=== PATIENT | female | born 1970 | race Caucasian/White ===

== ENCOUNTER 2018-03-09 18:52 | Emergency (ER) | payer BC, SELFPAY ==
[2018-03-09 19:05] VITALS: BP 163/91; PULSE 81; RESP 16; TEMP 37; O2SAT 96
[2018-03-09] MEDS: Normal Saline 1,000 ML 1000 ML IV (19:57)
[2018-03-09] MEDS: Ondansetron 4 MG/2 ML VIAL IVP (19:57)
[2018-03-09 20:16] LABS: ALT 23 U/L (12-78); AST 19 U/L (15-37); Albumin 3.2 g/dL (3.4-5.0); Alkaline Phosphatase 74 U/L (46-116); BUN 13 mg/dL (7-18); Bilirubin, Total 0.4 mg/dL (0.2-1.0); CREATININE 0.66 mg/dL (0.55-1.02); Calcium 8.5 mg/dL (8.5-10.1); Chloride 106 mmol/L (98-107); Glucose 135 mg/dL (70-100); Lipase 124 U/L (73-393); Potassium 3.6 mmol/L (3.5-5.1); Sodium 141 mmol/L (136-145); Total Protein 7.4 g/dL (6.4-8.2)
[2018-03-09 20:17] LABS: Abs Immature Grans 0.06 k/cumm (0.0-0.09); Absolute Basophil Count 0.02 k/cumm (0.0-0.2); Absolute Eosinophil Count 0.33 k/cumm (0.0-0.7); Absolute Lymphocyte Count 2.98 k/cumm (1.2-3.4); Absolute Monocyte Count 1.06 k/cumm (0.11-0.7); Basophils % 0.2; Eosinophils % 2.8; HCT 43.3 % (36.0-46.0); HGB 14.3 g/dL (12.0-15.5); Immature Grans % 0.5; Lymphocytes % 25.1; Mean Corpuscular Hemoglobin 30.8 pg (27.0-33.0); Mean Corpuscular Volume 93.3 fL (80-95); Mean Platelet Volume 11.2 fL (8.0-11.0); Monocytes % 8.9; Neutrophils % 62.5; Platelet Count 235 x1000/uL (130-400); RBC 4.64 m/cumm (4.00-5.20); RBC Distribution Width 13.8 % (11.7-14.6); White Blood Cell Count 11.89 k/cumm (4.4-10.8)
[2018-03-09 20:22] LABS: Troponin I < 0.02 ng/mL (0.00-0.06)
[2018-03-09 20:23] LABS: Absolute Neutrophil Count 7.43 k/cumm (1.2-6.7)
[2018-03-09] MEDS: Omnipaque 350 MG/ML 50 ML BTL PO (21:19)
[2018-03-09] MEDS: Breeza Beverage 473 ML BTL PO ×2 (21:19→21:20)
--- NOTE | 2018-03-09 21:24 | DI.RAD_ITS ---
SYMPTOMS/DIAGNOSIS: ABDOMINAL PAIN, VOMITING, NAUSEA PA CHEST AND KUB AND UPRIGHT ABDOMEN: CHEST: The lungs are well expanded and free of infiltrate. There is no pneumothorax or pleural effusion. The cardiovascular structures are intact. SUMMARY: No evidence of acute cardiopulmonary disease. ABDOMEN: Supine and upright images of the abdomen reveal no evidence of free air. There is some contrast material in the stomach and bowel. There is no evidence of obstruction. There is no evidence of gross organomegaly or localized intraabdominal or pelvic mass. Multiple left pelvic vascular clips are identified. SUMMARY: No evidence of an acute abdomen.
--- NOTE | 2018-03-09 22:09 | DI.VRAD_ITS ---
EXAM: XR Abdomen 2 Views With XR Chest CLINICAL HISTORY: 48 years old, female; Pain and signs and symptoms; Nausea and vomiting; Abdominal pain; Localized; Right upper quadrant (ruq); Patient HX: Abdominal pain, vomiting, nausea TECHNIQUE: Frontal view of the chest, frontal view of the abdomen/pelvis and upright or decubitus view of the abdomen. COMPARISON: No relevant prior studies available. FINDINGS: Lungs: There is no evidence of focal pulmonary consolidation. The pulmonary vasculature is normal. Pleural space: There is no evidence of pneumothorax. There are no pleural effusions present. Heart: The cardiac silhouette is within normal limits. Mediastinum: The mediastinum is normal. Intraperitoneal space: There is no free intraperitoneal air. Gastrointestinal tract: There is nonspecific bowel pattern. Contrast is seen throughout the wall and large bowel. No evidence of bowel obstruction. Organs: The organs are unremarkable. The organs visualized appear within normal limits. Bones/joints: There is a mild scoliosis of the thoracolumbar spine convex to the left. Surgical changes seen adjacent to the lower lumbar spine, right lower quadrant. The spine, sacroiliac joints, and hip joints show no evidence of fracture or other acute processes. The thoracic spine, sternum, ribs, and pectoral girdles show no evidence of fracture or other acute processes. There are no thoracic soft tissue masses or calcifications. Soft tissues: Surgical clips are seen within the left hemipelvis. There are no abdominal soft tissue masses or calcifications. IMPRESSION: No active cardiopulmonary disease . No acute abdominal process identfied. Dictated and Authenticated by: Emanuel Pete MD. Ordering:ANGEL VEARS MD
--- NOTE | 2018-03-09 22:12 | ED.GENADUL_ITS ---
Discharge Plan Disposition Patient Disposition: HOME Condition: Good Discharge Details Chief Complaint: Nausea/Vomit/Diar Clinical Impression: Nausea & vomiting, Biliary colic Primary Care Provider: Ling Roque ED Provider: Kirt Maurice Home Meds and New Rx's Prescriptions: New ondansetron HCl [Zofran] 4 mg tablet 4 mg PO TID PRN (Reason: nausea and vomiting) 5 Days RF: 0 No Action multivitamin 1 EACH capsule 1 ea PO QAM RF: 0 Discharge Instructions Instructions: Acute Nausea and Vomiting (ED) Additional Instructions: Please contact diagnostic imaging tomorrow morning at 7 AM for your ultrasound. Please avoid any spicy foods, fatty foods, or greasy foods. If you notice any worsening of your symptoms, or any new symptoms such as vomiting, diarrhea, fever, chills, shortness of breath, chest pain, numbness, weakness, or fainting , please return immediately to the emergency department for reevaluation. Please follow up with your primary care provider as soon as possible for reassessment and reevaluation. As always, it was a pleasure participating in your medical care today. Referrals: Ling Roque, FORCE ADJUSTMENT SUPERVISOR [Primary Care Provider] - Medical Decision Making This is a 48-year-old female with a past medical history of morbid obesity, ovarian and uterine cancer with a surgical hysterectomy who presents with abdominal pain that started at 10 PM yesterday after eating a greasy meal. Symptoms seem to come and go and are associated with greasy and spicy foods. She has had notable bloating and nausea, but very little vomiting. She has also had some weightish stool over the past few days. Physical exam demonstrates mild tenderness throughout, no acute guarding or rebound though. No peritoneal signs. We did perform a laboratory workup, and plan was to get a CT scan of the abdomen with contrast for further intra-abdominal evaluation. Differential included gallbladder pathology versus obstruction versus other acute intra-abdominal pathology. The patient's benign-appearing abdomen no differential for a surgical pathology was low. Patient's laboratory workup demonstrated minimal leukocytosis at 11.89, no bandemia, normal electrolytes, normal renal function. Troponin and EKG were also both benign. Lipase is normal. Urinalysis shows no signs of infection. Patient was given Zofran and IV fluids and felt much better after this. After the patient finished drinking her contrast patient went for CT however secondary to her weight of 423 pounds the patient was not allowed to get on the CT scanner table secondary to weatherization field technician out of concern for the machines maximum weight rating. We did get an x-ray of the patient's abdomen and this showed no acute intra- abdominal process. We did attempt to contact the ultrasonographers to come in for ultrasound however we are unable to get any response or person for ultrasound evaluation. Had a long and lengthy discussion with the patient regarding potential transfer for CT scan that would tolerate the patient's current habitus, versus discharge with ultrasound tomorrow morning and close follow-up. After a long discussion, review of the patient's labs and current imaging, and through shared decision making process with the family it is been decided to hold off on transfer for CT imaging, and instead for close follow-up tomorrow with ultrasonography for acute gallbladder pathology. Reevaluation the patient's abdominal tenderness is significantly improved. She has had complete resolution of her nausea, and states that she feels much much better at this time. Patient will be discharged home. I have a long discussion with her regarding red flags for which to immediately return, important foods for which to avoid, and the importance of close follow-up. Diagnosis at this time includes gastritis, potential biliary colic. I have extensively reviewed the treatment plan and discharge instructions with the patient and their family. I have addressed all patient concerns at this time. The patient and family was made aware of what symptoms to monitor for that would warrant a return to the emergency department. Discussed the plan with the patient and family, they demonstrate verbal understanding and agreement with our assessment and plan at this time. HPI General Date/Time Provider Initiated Documentation: 03/09/18 19:44 . HPI Narrative: This is a 48-year-old female with a past medical history of ovarian and uterine cancer with a surgical hysterectomy secondary to this. She has not received chemotherapy. She presents today for evaluation of abdominal pain, bloating, and nausea. Patient states that at 10 PM yesterday she had a very big greasy pizza, and since then has had the symptoms of bloating nausea and gas. Symptoms appear to be localized to her right upper quadrant. They come and go in severity. They seem to be worsened with food and greasy foods in particular. She has had no vomiting. Because of her general denies discomfort she has not eaten anything since 10 PM yesterday but has been able to drink well without problems. She has noticed that her stool has been whitish and yellow in color which is been a change. She denies any hematemesis, hematochezia, melena. She denies any chest pain, shortness of breath. Denies PE risk factors such as recent long car rides, immobilization, recent surgery, prior history of DVT or PE, family history of PE or DVT, morbid obesity, exogenous estrogen and smoking, hemoptysis, history of cancer. She denies any history of gallbladder problems. Patient has no other complaints at this time. She denies any previous surgery, she denies any pertinent family history. Related Data Home Medications Medication Instructions Recorded Confirmed multivitamin 1 ea PO QAM 07/29/12 03/09/18 ondansetron HCl [Zofran] 4 mg PO TID PRN 5 Days tab 03/09/18 Previous Rx's Medication Instructions Recorded ondansetron HCl [Zofran] 4 mg PO TID PRN 5 Days tab 03/09/18 Allergies Allergy/AdvReac Type Severity Reaction Status Date / Time Penicillins Allergy Intermediate Anaphylaxsi Unverified 03/09/18 19:40 s General Stated Complaint: Nausea/Vomit/Diar ANGIE: 3 Review of Systems Review of Systems All systems reviewed & are unremarkable except as noted in HPI and below PFSH Family History Mother Diabetes Essential hypertension ASCVD (arteriosclerotic cardiovascular disease) Heart disease Obesity Father Diabetes Essential hypertension Heart disease Obesity Grandfather Personal history of malignant neoplasm Grandfather Essential hypertension Personal history of malignant neoplasm Heart disease Grandmother Personal history of malignant neoplasm Grandmother No problems noted. Daughter Asthma Daughter Asthma Social History Smoking/Tobacco Use Status: Never Surgical History Abdominal hysterectomy (~2007) Bilateral salpingectomy with oophorectomy (~2007) Exam Narrative Exam Narrative: 1.Const: Well-nourished, Well-developed, appearing stated age, super morbidly obese 2.Eyes: PERRL, no conjunctival injection, and symmetrical lids. 3.ENT: Atraumatic external nose and ears. Moist MM. Neck: Symmetric, trachea midline, No thyromegaly. 4.CVS: +S1/S2, No murmurs or gallops. Peripheral pulses 2+ and equal in all extremities. Brisk capillary refill in all extremities. 5.RESP: Unlabored respiratory effort. Clear to auscultation bilaterally. No wheezes rales or rhonchi 6.GI: Soft,Nondistended, No hepatosplenomegaly. No guarding or rebound. No focal abdominal tenderness. No right lower quadrant tenderness. Questionable right upper quadrant tenderness. Negative Machado sign. Notable amounts of pannus. 7.MSK: Normocephalic/Atraumatic, Extremities w/o deformity or ttp No cyanosis or clubbing, Normal movement of all extremities 8.Skin: Warm, Dry. No rashes or lesions. No calf tenderness. 9.Neuro: named account executive II-XII grossly intact. Sensation grossly intact, no focal neurologic deficits. 10.Psych: (AAO) x3. Appropriate mood and affect Course Vital Signs Temperature 37.0 C 03/09/18 19:05 Pulse 81 03/09/18 19:05 Respiratory Rate 16 03/09/18 19:05 Blood Pressure 163/91 H 03/09/18 19:05 Pulse Oximetry 96 03/09/18 19:05 Temperature 37.0 C 03/09/18 19:05 Temperature Source Temporal Artery Scan 03/09/18 19:05 Pulse 81 03/09/18 19:05 Respiratory Rate 16 03/09/18 19:05 Blood Pressure 163/91 H 03/09/18 19:05 Blood Pressure Position Sitting 03/09/18 19:05 Pulse Oximetry 96 03/09/18 19:05 Oxygen Delivery Method Room Air 03/09/18 19:05 Oxygen Flow Rate 0 03/09/18 19:05 Pain Level 7 03/09/18 19:05 Lab/Test Results Lab/Test Results: Laboratory Tests Range/Units 03/09/18 03/09/18 19:40 19:40 WBC (4.4-10.8) k/cumm 11.89 H RBC (4.00-5.20) m/cumm 4.64 Hgb (12.0-15.5) g/dL 14.3 Hct (36.0-46.0) % 43.3 MCV (80-95) fL 93.3 MCH (27.0-33.0) pg 30.8 MCHC (32.0-36.0) g/dL 33.0 RDW (11.7-14.6) % 13.8 Plt Count (130-400) x1000/uL 235 MPV (8.0-11.0) fL 11.2 H Immature Gran % 0.5 Neutrophils % 62.5 Lymphocytes % 25.1 Monocytes % 8.9 Eosinophils % 2.8 Basophils % 0.2 Absolute Neutrophils (1.2-6.7) k/cumm 7.43 H Absolute Lymphocytes (1.2-3.4) k/cumm 2.98 Absolute Monocytes (0.11-0.7) k/cumm 1.06 H Absolute Eosinophils (0.0-0.7) k/cumm 0.33 Absolute Basophils (0.0-0.2) k/cumm 0.02 Sodium (136-145) mmol/L 141 Potassium (3.5-5.1) mmol/L 3.6 Chloride (98-107) mmol/L 106 Carbon Dioxide (21.0-32.0) mmol/L 23.0 Anion Gap (3-11) mmol/L 12.0 H BUN (7-18) mg/dL 13 Creatinine (0.55-1.02) mg/dL 0.66 Estimated GFR/1.73 m2 (mL/min/1.73m2) >= 60.00 Glucose (70-100) mg/dL 135 H Calcium (8.5-10.1) mg/dL 8.5 Total Bilirubin (0.2-1.0) mg/dL 0.4 AST (15-37) U/L 19 ALT (12-78) U/L 23 Alkaline Phosphatase (46-116) U/L 74 Troponin I (0.00-0.06) ng/mL < 0.02 Total Protein (6.4-8.2) g/dL 7.4 Albumin (3.4-5.0) g/dL 3.2 L Lipase (73-393) U/L 124
[2018-03-09 22:15] LABS: Bilirubin Negative (Negative); Blood Negative (Negative); Clarity Clear; Glucose Negative (Negative); Ketones Negative (Negative); Leukocyte Esterase Negative (Negative); Nitrite Negative (Negative); Specific Gravity 1.025 (1.005-1.025); Urobilinogen 0.2 EU/dL (Up TO 0.2); pH 5.5 (5-8)
[2018-03-09 22:28] VITALS: BP 115/57; PULSE 80; RESP 16; TEMP 37; O2SAT 95
[2018-03-09] MEDS: Ondansetron O.D.T. 4 MG TABEF PO (22:55)
[2018-03-09 23:02] VITALS: BP 115/57; PULSE 80; RESP 16; TEMP 37; O2SAT 95
== END 2018-03-09 23:08 | disposition home or self-care (01) ==
PROVIDERS: Emergency Provider Student in an Organized Health Care Education/Training Program
DX: R11.2 Nausea with vomiting, unspecified (principal); R14.0 Abdominal distension (gaseous); R10.11 Right upper quadrant pain
CPT/HCPCS: 36415; 80053; 83690; 93005; 96361; 96374; 99285; 74022; 81003; 84484; 85025; 93010; J2405; Q9967

== ENCOUNTER 2018-03-10 12:02 | Emergency (ER) | payer BC, SELFPAY ==
[2018-03-10 12:07] VITALS: BP 148/88; PULSE 77; RESP 16; TEMP 36.5; O2SAT 98
--- NOTE | 2018-03-10 12:26 | W.ED.GENAD ---
Discharge Plan Disposition Patient Disposition: HOME Condition: Improving Discharge Details Chief Complaint: Recheck Clinical Impression: Abdominal pain Primary Care Provider: Ling Roque ED Provider: Chico Al Home Meds and New Rx's Prescriptions: Continue multivitamin 1 EACH capsule 1 ea PO QAM RF: 0 ondansetron HCl [Zofran] 4 mg tablet 4 mg PO TID PRN (Reason: nausea and vomiting) 5 Days RF: 0 Discharge Instructions Instructions: Abdominal Pain (ED) Additional Instructions: Feel free to return to the emergency department for any new or significant worsening of symptoms such as persistent vomiting, abdominal pain, fever chills or any further concerns. Otherwise call general surgeon's office for arrangement of follow-up appointment within the next couple weeks. You may continue to use the prescribed medication for nausea as needed Referrals: Anthony Hernandez DO [ [facility] STAFF PHYSICIAN] - (Call the office within the next couple days for arrangement of follow-up for reassessment) Discharge Data Discharge Date/Time-TO BE ENTERED AT DEPARTURE: 03/10/18 12:36 Medical Decision Making Patient presenting to the emergency department for follow-up on ultrasound results after yesterday's visit. Patient stated some epigastric and right upper quadrant pain which is now resolved. Patient denies any symptoms at this time. Ultrasound did show questionable fatty liver with some increase in hepatic size but no evidence of acute cholecystitis biliary dilatation or gallstones. Physical exam is unremarkable today and patient is in no signs of distress or discomfort and denies any pain. Given negative ultrasound results and improvement of symptoms I feel the patient is able to be safely discharged with follow-up to general surgery for question of biliary colic and need of possible further testing but I do not feel that this needs to be done on an emergent basis. After discussion of diagnosis and plan of care patient has no further needs, questions, or concerns and states clear understanding to return to the emergency department for any worsening symptoms. HPI General Mode of arrival: ambulatory. Date/Time Provider Initiated Documentation: 03/10/18 12:25. Limitations to Documentation: no limitations. Information obtained by: patient, RN notes reviewed and old records reviewed. History of Present Illness 48 year old F presents to the emergency department with the chief complaint of Ultrasound results/abdominal pain, Quality is described as other (Denies any current pain or discomfort), Patient started experiencing this day(s) (1) and it has been now resolved. No exacerbating factors reported . Patient notes no other symptoms.. Related Data Home Medications Medication Instructions Recorded Confirmed multivitamin 1 ea PO QAM 07/29/12 03/10/18 ondansetron HCl [Zofran] 4 mg PO TID PRN 5 Days tab 03/09/18 03/10/18 Previous Rx's Medication Instructions Recorded ondansetron HCl [Zofran] 4 mg PO TID PRN 5 Days tab 03/09/18 Allergies Allergy/AdvReac Type Severity Reaction Status Date / Time Penicillins Allergy Intermediate Anaphylaxsi Unverified 03/10/18 12:09 s General Stated Complaint: Recheck ANGIE: 5 Review of Systems Constitutional Denies body ache(s), Denies chills and Denies fever(s) Cardiovascular Denies chest pain and Denies dyspnea Respiratory Denies dyspnea Gastrointestinal Reports as per HPI, Reports abdominal pain, Reports nausea and Denies vomiting Genitourinary Denies dysuria and Denies flank pain Integumentary/Breasts Denies rash PFSH Family History Mother Diabetes Essential hypertension ASCVD (arteriosclerotic cardiovascular disease) Heart disease Obesity Father Diabetes Essential hypertension Heart disease Obesity Grandfather Personal history of malignant neoplasm Grandfather Essential hypertension Personal history of malignant neoplasm Heart disease Grandmother Personal history of malignant neoplasm Grandmother No problems noted. Daughter Asthma Daughter Asthma Social History Smoking/Tobacco Use Status: Never Surgical History Abdominal hysterectomy (~2007) Bilateral salpingectomy with oophorectomy (~2007) Exam Const General: cooperative, no acute distress and not ill appearing Orientation: alert, awake and oriented x3 HENMT Mouth: moist mucous membranes Resp Effort & Inspection: normal respiratory effort, able to speak in complete sentences and no respiratory distress Auscultation: clear to auscultation bilaterally Cardio Rate: regular rate Rhythm: regular rhythm Heart Sounds: S1 normal and S2 normal GI Inspection: large pannus and obesity Palpation: soft and nontender Auscultation: normal bowel sounds Skin General skin exam: no rashes or lesions noted Neuro General: alert, awake, oriented x3, moves all extremities and no focal motor deficits Sensory Exam: no sensory deficits noted Course Vital Signs Temperature 36.5 C 03/10/18 12:07 Pulse 77 03/10/18 12:07 Respiratory Rate 16 03/10/18 12:07 Blood Pressure 148/88 H 03/10/18 12:07 Pulse Oximetry 98 03/10/18 12:07 Temperature 36.5 C 03/10/18 12:07 Temperature Source Temporal Artery Scan 03/10/18 12:07 Pulse 77 03/10/18 12:07 Respiratory Rate 16 03/10/18 12:07 Respiratory Effort Non-Labored 03/10/18 12:10 Blood Pressure 148/88 H 03/10/18 12:07 Blood Pressure Position Sitting 03/10/18 12:07 Pulse Oximetry 98 03/10/18 12:07 Oxygen Delivery Method Room Air 03/10/18 12:07 Oxygen Flow Rate 0 03/10/18 12:07 Pain Level 0 03/10/18 12:07
--- NOTE | 2018-03-10 12:29 | ED.GENADUL_ITS ---
Discharge Plan Disposition Patient Disposition: HOME Condition: Improving Discharge Details Chief Complaint: Recheck Clinical Impression: Abdominal pain Primary Care Provider: Ling Roque ED Provider: Chico Al Home Meds and New Rx's Prescriptions: Continue multivitamin 1 EACH capsule 1 ea PO QAM RF: 0 ondansetron HCl [Zofran] 4 mg tablet 4 mg PO TID PRN (Reason: nausea and vomiting) 5 Days RF: 0 Discharge Instructions Instructions: Abdominal Pain (ED) Additional Instructions: Feel free to return to the emergency department for any new or significant worsening of symptoms such as persistent vomiting, abdominal pain, fever chills or any further concerns. Otherwise call general surgeon's office for arrangement of follow-up appointment within the next couple weeks. You may continue to use the prescribed medication for nausea as needed Referrals: Anthony Hernandez DO [ [facility] STAFF PHYSICIAN] - (Call the office within the next couple days for arrangement of follow-up for reassessment) Discharge Data Discharge Date/Time-TO BE ENTERED AT DEPARTURE: 03/10/18 12:36 Medical Decision Making Patient presenting to the emergency department for follow-up on ultrasound results after yesterday's visit. Patient stated some epigastric and right upper quadrant pain which is now resolved. Patient denies any symptoms at this time. Ultrasound did show questionable fatty liver with some increase in hepatic size but no evidence of acute cholecystitis biliary dilatation or gallstones. Physical exam is unremarkable today and patient is in no signs of distress or discomfort and denies any pain. Given negative ultrasound results and improvement of symptoms I feel the patient is able to be safely discharged with follow-up to general surgery for question of biliary colic and need of possible further testing but I do not feel that this needs to be done on an emergent basis. After discussion of diagnosis and plan of care patient has no further needs, questions, or concerns and states clear understanding to return to the emergency department for any worsening symptoms. HPI General Mode of arrival: ambulatory . Date/Time Provider Initiated Documentation: 03/10/18 12:25 . Limitations to Documentation: no limitations . Information obtained by: patient, RN notes reviewed and old records reviewed . History of Present Illness 48 year old F presents to the emergency department with the chief complaint of Ultrasound results/abdominal pain, Quality is described as other (Denies any current pain or discomfort), Patient started experiencing this day(s) (1) and it has been now resolved. No exacerbating factors reported . Patient notes no other symptoms.. Related Data Home Medications Medication Instructions Recorded Confirmed multivitamin 1 ea PO QAM 07/29/12 03/10/18 ondansetron HCl [Zofran] 4 mg PO TID PRN 5 Days tab 03/09/18 03/10/18 Previous Rx's Medication Instructions Recorded ondansetron HCl [Zofran] 4 mg PO TID PRN 5 Days tab 03/09/18 Allergies Allergy/AdvReac Type Severity Reaction Status Date / Time Penicillins Allergy Intermediate Anaphylaxsi Unverified 03/10/18 12:09 s General Stated Complaint: Recheck ANGIE: 5 Review of Systems Constitutional Denies body ache(s), Denies chills and Denies fever(s) Cardiovascular Denies chest pain and Denies dyspnea Respiratory Denies dyspnea Gastrointestinal Reports as per HPI, Reports abdominal pain, Reports nausea and Denies vomiting Genitourinary Denies dysuria and Denies flank pain Integumentary/Breasts Denies rash PFSH Family History Mother Diabetes Essential hypertension ASCVD (arteriosclerotic cardiovascular disease) Heart disease Obesity Father Diabetes Essential hypertension Heart disease Obesity Grandfather Personal history of malignant neoplasm Grandfather Essential hypertension Personal history of malignant neoplasm Heart disease Grandmother Personal history of malignant neoplasm Grandmother No problems noted. Daughter Asthma Daughter Asthma Social History Smoking/Tobacco Use Status: Never Surgical History Abdominal hysterectomy (~2007) Bilateral salpingectomy with oophorectomy (~2007) Exam Const General: cooperative, no acute distress and not ill appearing Orientation: alert, awake and oriented x3 HENMT Mouth: moist mucous membranes Resp Effort & Inspection: normal respiratory effort, able to speak in complete sentences and no respiratory distress Auscultation: clear to auscultation bilaterally Cardio Rate: regular rate Rhythm: regular rhythm Heart Sounds: S1 normal and S2 normal GI Inspection: large pannus and obesity Palpation: soft and nontender Auscultation: normal bowel sounds Skin General skin exam: no rashes or lesions noted Neuro General: alert, awake, oriented x3, moves all extremities and no focal motor deficits Sensory Exam: no sensory deficits noted Course Vital Signs Temperature 36.5 C 03/10/18 12:07 Pulse 77 03/10/18 12:07 Respiratory Rate 16 03/10/18 12:07 Blood Pressure 148/88 H 03/10/18 12:07 Pulse Oximetry 98 03/10/18 12:07 Temperature 36.5 C 03/10/18 12:07 Temperature Source Temporal Artery Scan 03/10/18 12:07 Pulse 77 03/10/18 12:07 Respiratory Rate 16 03/10/18 12:07 Respiratory Effort Non-Labored 03/10/18 12:10 Blood Pressure 148/88 H 03/10/18 12:07 Blood Pressure Position Sitting 03/10/18 12:07 Pulse Oximetry 98 03/10/18 12:07 Oxygen Delivery Method Room Air 03/10/18 12:07 Oxygen Flow Rate 0 03/10/18 12:07 Pain Level 0 03/10/18 12:07
--- NOTE | 2018-03-11 09:27 | PDOC.ERCMPRO ---
Care Management Progress Note 03/11/18-Pt seen on 03/10/18 for abdominal pain . Biliary colic? by Dr. Endy Kay. Referral 1-2 week f/u with surgical faxed.
== END 2018-03-10 12:36 | disposition home or self-care (01) ==
PROVIDERS: Emergency Provider Nurse Practitioner Family
DX: R10.11 Right upper quadrant pain (principal); Z71.2 Person consulting for explanation of examination or test findings

== ENCOUNTER 2018-03-10 13:52 | Outpatient (CLI) | payer BC, SELFPAY ==
--- NOTE | 2018-03-10 11:59 | DI.US_ITS ---
SYMPTOM/DIAGNOSIS: NAUSEA, VOMITING, RUQ DISCOMFORT ABDOMEN ULTRASOUND: The aorta and vena cava are normal. The liver is enlarged and echogenic consistent with fatty infiltration. The gallbladder is normal. There are no gallstones. There is no evidence of ductal dilatation. The pancreas is intact. The spleen is normal. The kidneys are unremarkable. There is no evidence of abdominal free fluid. SUMMARY: A fatty enlarged liver is demonstrated. No acute abnormality is defined.
== END 2018-03-10 14:12 ==
PROVIDERS: Visit Provider Student in an Organized Health Care Education/Training Program
DX: R11.2 Nausea with vomiting, unspecified (principal); R10.11 Right upper quadrant pain; R16.0 Hepatomegaly, not elsewhere classified
CPT/HCPCS: 76700

== ENCOUNTER 2018-04-10 10:03 | Outpatient (CLI) | payer BC, SELFPAY | END 2018-04-10 10:23 | PROVIDERS: Visit Provider Surgery | DX: K82.8 Other specified diseases of gallbladder (principal); Z01.818 Encounter for other preprocedural examination ==

== ENCOUNTER 2019-06-29 13:09 | Outpatient (CLI) | payer BC, SELFPAY ==
--- NOTE | 2019-06-29 12:09 | DI.US_ITS ---
EXAM: US LOWER EXTREMITY VENOUS LT CLINICAL HISTORY: left lower leg/calf/knee pain for 2 days, M79.662. TECHNIQUE: Left lower extremity venous ultrasound performed using grayscale, color-flow, and spectra l Doppler analysis. COMPARISON: US ABDOMEN from 03/10/2018 FINDINGS: The left common femoral, femoral and popliteal veins demonstrate normal compressibility, augmentation , and color Doppler. The posterior tibial veins are patent. The saphenofemoral junction is unremarkab le. There is edema seen in the lower extremity. IMPRESSION: No DVT.
== END 2019-06-29 13:29 ==
PROVIDERS: Visit Provider Family Medicine
DX: M79.662 Pain in left lower leg (principal); M25.562 Pain in left knee; R60.0 Localized edema
CPT/HCPCS: 93971

== ENCOUNTER 2020-04-18 08:41 | Outpatient (CLI) | payer BC, SELFPAY ==
[2020-04-20 22:55] LABS: Patient Race White; SARS-CoV-2 RNA Undetected (Undetected); SARS-CoV-2 Specimen Source Nasal
== END 2020-04-18 09:01 ==
DX: J02.9 Acute pharyngitis, unspecified (principal)
CPT/HCPCS: U0003

== ENCOUNTER → 2020-08-09 01:09 | Outpatient (CLI) | payer BC, SELFPAY ==
--- NOTE | 2020-08-09 08:15 | DI.RAD_ITS ---
EXAM: XR HEEL LT OS CALCIS CLINICAL HISTORY: contusion heel,S90.32XA. TECHNIQUE: 2D digital imaging was performed. COMPARISON: No exams were available for comparison FINDINGS: Two views the left calcaneus including a lateral view and a Quang axial view reveal no evidence of fr acture. A large inferior calcaneal spur is noted as is some calcification in the adjacent plantar fa scia. Also noted is calcification at the insertion of the Achilles on the posterior calcaneus. Os t rigonum versus prominent posterior process of the talus is noted. There is a dorsal talar excrescenc e distally in the talus seen on lateral view. There is no obvious osseous tarsal coalition. Also ev ident on the lateral view is a calcification measuring 9 x 6 millimeters dorsal to the distal navicul ar bone which is probably an accessory ossicle. Bone density is normal. No radiographic evidence of osteomyelitis. No radiopaque foreign body. No obvious degenerative changes in the ankle and subtalar joints on these views. Also unremarkable a ppearance of the calcaneocuboid joint. IMPRESSION: DATA REPOSITORY: RADIATION DOSE DELIVERED:
== END ==
PROVIDERS: Visit Provider Nurse Practitioner
DX: S90.32XA Contusion of left foot, initial encounter (principal)
CPT/HCPCS: 73650

== ENCOUNTER 2020-08-16 08:48 | Outpatient (CLI) | payer BC, SELFPAY ==
[2020-08-17 14:23] LABS: COVID-19 RT-PCR UVMMC Result Negative (Negative)
== END 2020-08-16 08:49 | disposition home or self-care (01) ==
DX: Z20.822 Contact with and (suspected) exposure to COVID-19 (principal)
CPT/HCPCS: U0003

== ENCOUNTER 2022-02-25 07:34 | Emergency (ER) | payer BC, SELFPAY ==
[2022-02-25 07:38] VITALS: BP 174/92; PULSE 91; RESP 18; TEMP 36.6; O2SAT 96
--- OUTSIDE RECORDS SUMMARY | 2022-02-25 07:42 | XMS_ITS | Encounter Summary ---
:1970 Author Organization [facility] [place] [address] Care Team Providers Name Role Phone Ling Roque APRN Primary Care Provider Reason for Referral Diagnostic Test (Routine) - Closed Specialty Diagnoses / Procedures Referred By Contact Refer red To Contact Radiology Diagnoses Right upper quadrant abdominal pain Anthony Hernandez, DO [facility] Rad Nuclear Med Procedures NM Functional Biliary Scan [id number] [place] [address] Phone: Fax: Referral ID Status Reason Start Date Expiration Date Visits V isits Requested Authorized [id number] Closed Specialty 03/17/2018 03/17/2019 2 2 Service Requested Reason for Visit Diagnostic Test (Routine) - Closed Specialty Diagnoses / Procedures Referred By Contact Refer red To Contact Radiology Diagnoses Right upper quadrant abdominal pain Anthony Hernandez DO [facility] Rad Nuclear Med Procedures NM Functional Biliary Scan [id number] [place] [address] Phone: Fax: Referral ID Status Reason Start Date Expiration Date Visits V isits Requested Authorized [id number] Closed Specialty 03/17/2018 03/17/2019 2 2 Service Requested Encounter Details Date Type Department Care Team Description 03/19/2018 Hospital Encounter Nuclear Medicine at Anthony Hernandez , Right upper [facility] abdominal [facility] [address] [facility] [id number] [phone] Social History Tobacco Use Types Packs/Day Years Used Date Never Smoker Smokeless Tobacco: Never Used Alcohol Use Standard Drinks/Week Comments No 0 (1 standard drink = 0.6 oz pure alcoho l) Sex Assigned at Date Recorded Not on file documented as of this encounter Medications at Time of Discharge Medication Sig Dispensed Refills Start Date End Date aspirin 81 mg EC tablet Take 81 mg by mouth 0 11/13/2018 daily. documented as of this encounter Plan of Treatment Not on filedocumented as of this encounter Procedures Procedure Name Priority Date/Time Associated Comments Diagnosis NM FUNCTIONAL Routine 03/19/2018 11:54 AM Right upper Results for this BILIARY SCAN EDT quadrant abdominal procedure are in pain the results section. documented in this encounter Results NM Functional Biliary Scan (03/19/2018 11:54 AM EDT) Anatomical Region Laterality Modality Nuclear Medicine Specimen (Source) Anatomical Location Collection Method / Collectio n Time Received Time / Laterality Volume Impressions 03/19/2018 12:00 PM EDT Diminished gallbladder function consistent with chronic gallbladder or biliary disease. Narrative 03/19/2018 12:00 PM EDT EXAMINATION: NM FUNCTIONAL BILIARY SCAN CLINICAL HISTORY: RUQ abdominal pain TECHNIQUE: Technetium-99m mebrofenin was administered intravenously in a dose of 5.3 mCi. An image of the abdomen was obt ained in the LITHU[place]IAN projection 60 minutes later. A fatty meal was then administered and i maging continued for an additional 60 minutes. FINDINGS: Activity fills the gallbladder at 60 min utes post injection. During the sincalide infusion, there is partial con traction of the gallbladder. Quantitative analysis: The gallbladder ejection fraction is 29% (normal is > 38%). Procedure Note Kenny Ruby MD - 03/19/2018 EXAMINATION: NM FUNCTIONAL BILIARY SCAN CLINICAL HISTORY: RUQ abdominal pain TECHNIQUE: Technetium-99m mebrofenin was administered intravenously in a dose of 5.3 mCi. An image of the abdomen was obt ained in the L[place]IAN projection 60 minutes later. A fatty meal was then administered and i maging continued for an additional 60 minutes. FINDINGS: Activity fills the gallbladder at 60 min utes post injection. During the sincalide infusion, there is partial con traction of the gallbladder. Quantitative analysis: The gallbladder ejection fraction is 29% (normal is > 38%). IMPRESSION Diminished gallbladder function consiste nt with chronic gallbladder or biliary disease. Anthony Hernandez DO [place] NM ORDERABLES documented in this encounter Visit Diagnoses Diagnosis Right upper quadrant abdominal pain Abdominal pain, right upper quadrant documented in this encounter Administered Medications Inactive Administered Medications - up to 3 most recent administrations Medication Order MAR Action Action Date Dose Rate Site technetium (Tc-99m) mebrofenin Given 03/19/2018 9:45 AM EDT 5.3 mCi injection 5.3 mCi 5.3 mCi, Intravenous, ONCE PRN, 1 dose, Starting on Brie 03/19/18 at 0945, Until Brie 03/19/18 at 0945, Per Protocol, Routine documented in this encounter Care Teams Community Placement Worker Relationship Specialty Start Date End Date Ling Roque APRN PCP - General Family Medicine 03/18/18 [address] [place] [address] documented as of this encounter
--- OUTSIDE RECORDS SUMMARY | 2022-02-25 07:42 | XMS_ITS | Encounter Summary ---
:1970 Author Organization [facility] [place] [address] Care Team Providers Name Role Phone Ling Roque TONI Primary Care Provider Reason for Visit Auth/Cert Specialty Diagnoses / Procedures Referred By Contact Refer red To Contact Diagnoses BILIARY DYSLEINSIC Procedures PRO LAP, CHOLECYSTECTOMY/GRAPH LAPAROSCOPIC CHOLECYSTECTOMY WITH CHOLANGIOGRAM ([facility] 11.47) Referral ID Status Reason Start Date Expiration Date Visits Requ ested Visits Authorized [id number] 1 1 Encounter Details Date Type Department Care Team Description 11/16/2018 Surgery Main Operating Room Anil Newton LAPA ROSCOPIC Caroline Melendez MD CHOLECYSTECTOMY ([facility] 10.47) [facility] [address] [place] [address] [place] [address] [phone] Social History Tobacco Use Types Packs/Day Years Used Date Never Smoker Smokeless Tobacco: Never Used Alcohol Use Standard Drinks/Week Comments No 0 (1 standard drink = 0.6 oz pure alcoho l) Sex Assigned at Date Recorded Not on file documented as of this encounter Last Filed Vital Signs Vital Sign Reading Time Taken Comments Blood Pressure 136/67 11/16/2018 8:42 AM EDT Pulse 79 11/16/2018 8:42 AM EDT Temperature 36.2 ??C (97.2 ??F) 11/16/2018 8:42 AM EDT Respiratory Rate 16 11/16/2018 8:42 AM EDT Oxygen Saturation 99% 11/16/2018 8:42 AM EDT Inhaled Oxygen Concentration - - Weight 186 kg (410 lb) 11/16/2018 8:42 AM EDT Height 170.2 cm (5' 7) 11/16/2018 8:42 AM EDT Body Mass Index 64.22 11/16/2018 8:42 AM EDT documented in this encounter Discharge Instructions Discharge InstructionsDelta Barr RN - 11/16/2018 2:07 PM EDT POST ANESTHESIA INSTRUCTIONS Go home, rest, use caution on stairs. Change positions slowly. Do not smoke if you are alone. Diet light to regular as tolerated today. If nausea occurs start with clear liquids and progress slowly. No driving, operating machinery, alcoholic beverages and no important decisions for 24 hours. Monitor IV site for signs and symptoms of infection: increasing redness, swelling, foul drainage, ifoccurs contact M.D. Patients who have had endotrachial tubes (this tube, used by anesthesia department, is passed down your throat after you are asleep, to ensure safe air passage during your operation). A sore throat is normal due to the tube. Cold liquids or soothing lozenges will help ease the discomfort. The generalized muscle aches are due to the medication given to you just before the tube is inserted. As the medication wears off, you may develop muscle soreness, which usually goes away in 12-24 hours. Patient InstructionsErick Yap - 11/16/2018 12:57 PM EDT Instructions following Laparoscopic Cholecystectomy Wound Care: Keep dressings/Band-Aids on incisions for the next 2 days. Do not get dressings wet. If they become wet or soaked with drainage you may change them with fresh ones as needed. If there are pieces of tape directly on the incision (steri-strips or butterflys), please leave them on until they fall off on their own. You may trim them back as they begin to peel up. After 2 days you may remove dressing/Band-Aids and leave open to air. You may now shower and get incisions wet. Pat dry immediately following. Do not scrub them vigorously for the next 2-3 weeks. Do not soak incision(s) under water for the next 2 weeks (i.e. soaking in bath or swimming) as this may promote a wound infection. Your stitches will dissolve and do not need to be removed. Activity: No heavy lifting more than 10-15 pounds for the next 2 weeks, then you may gradually lift heavier objects as tolerated by discomfort. Otherwise activity as tolerated by your comfort level. Call Doctor for: Please call if you notice worsening redness or drainage from incision(s) lasting longer than 5 days after your surgery, any foul-smelling drainage from the incision, pain not controlled by pain medications, persistent nausea or vomiting, or for any fevers greater than 101.3 F. The number for questions is [phone] before 5 PM weekdays and [phone] after 5 PM and weekends. Pain Medication: You may use ibuprofen alternating with tylenol for pain control Follow-up: Follow-up appointment will be scheduled with Dr. Newton in 4 weeks. Appointment will be mailed to you. Please call [phone] (clinic number for appointments) to confirm date and time of your appointment if you do not receive your apointment in 3 weeks. documented in this encounter Medications at Time of Discharge Medication Sig Dispensed Refills Start Date End Date montelukast (SINGULAIR) TAKE ONE TABLET BY 4 09/24 10 mg Tablet MOUTH EVERY MORNING FOR ALLERGIC RHINITIS loratadine (CLARITIN) 10 Take 10 mg by mouth 0 mg Tablet daily. Lactase (LACTAID FAST Take 9,000 Units by 0 ACT) 9,000 unit Tablet mouth daily. loperamide (IMODIUM) 2 mg Take 2 mg by mouth 4 0 Capsule times daily as needed for Diarrhea. documented as of this encounter H&P Notes Erick Yap - 11/16/2018 10:04 AM EDT Interval H&P Planned Procedure: laparoscopic cholecystectomy with intra-operative cholangiogram A 30 day history and physical was reviewed and updated. Briefly, Betsy Feliciano is a 48 y.o. female with a history of biliary colic. She reports no interval change in her overall health since last seeing Dr. Newton in clinic on 10/28/2018 - please see clinic note for further details. VITALS: BP 136/67 (BP Location (NBP): Left arm) Pulse 79 Temp 36.2 ??C (97.2 ??F) (Temporal) Resp 16 Ht 170.2 cm (5' 7) Wt (!) 186 kg (410 lb) SpO2 99% BMI 64.22 kg/m?? EXAM: Gen:a&O x3 CV: rrr Pulm: ctab Abd: obese, soft, NT ND Risks and benefits of the procedure were reviewed with the patient, including bleeding, infection damage to surrounding structures, possible post operative pain, possible common bile duct injury, possible need for further surgery/intervention. She understands these potential risks and wishes to proceed. All questions answered. Consent signed. Plan for laparoscopic cholecystectomy with intraoperative cholangiogram. Erick Yap Md documented in this encounter Miscellaneous Notes Op Note - Anil Newton MD - 11/16/2018 3:45 PM EDT [facility] Operative Note Patient Name: Betsy Feliciano : [id number] MR#: [id number] Case Date: 11/16/2018 Surgeon: Surgeon(s) and Role: * Anil Newton MD - Primary * Erick Yap MD - Resident Preoperative diagnosis: BILIARY DYSKINESIA Postoperative diagnosis: BILIARY DYSKINESIA Procedure(s) (LRB): LAPAROSCOPIC CHOLECYSTECTOMY (WRVU 10.47) (N/A) LAPAROSCOPIC LIVER BIOPSY (WRVU 16.52) (N/A) Indications For Procedure: The patient is a 48-year-old female with a history of biliary colic, confirmed to have biliary dyskinesia on HIDA. Following review of her therapeutic options, she has elected to undergo a laparoscopic cholecystectomy. Findings: The patient was noted to have evidence of inflammation to her gallbladder in the past as evidenced by omental adhesions to the gallbladder. She underwent a laparoscopic cholecystectomy and wehad an excellent critical view. She was noted to have extreme hepatomegaly and underwent a liver biopsy to check for MASH. Description of Procedure: The patient was brought to the Operating Room and placed in the supine position. Following uneventful induction of general endotracheal anesthesia, Venodyne stockings and an orogastric tube were placed. Her abdomen was prepped and draped in the usual sterile fashion. A small i ncision was made in the base of the umbilicus followed by insertion of a Veress needle in the abdominal cavity and pneumoperitoneum to 15 mmHg pressure was obtained without difficulty. The first trocarwas a 10 mm trocar placed through the umbilicus. Through this, a 30 degree laparoscope was inserted.All remaining trocars were inserted under direct visualization. The next trocar was a 10 mm trocar placed in the midline just below the xiphoid. The next trocar was a 5 mm trocar placed in the anterioraxillary line just below the costal margin. She was noted to have significant hepatomegaly consistent with her BMI in the 60s. Through this trocar, a grasping forceps was placed on the fundus of the ga llbladder where it was then retracted cephalad. The last trocar was a 5 mm trocar placed in the midclavicular line below the costal margin. Using appropriate grasping instruments, the peritoneum overlying the triangle of Calot was incised. The cystic duct/gallbladder junction was identified, dissected circumferentially. A clip was then placed on the cystic duct/gallbladder junction two clips were placed proximally and one distally, and the artery was divided. Remaining soft tissue attachments to thegallbladder to the liver bed were then divided using electrocautery. The gallbladder bed was inspected and excellent hemostasis was obtained. The gallbladder was extracted through the epigastric trocarsite. We then did a liver biopsy from the inferior edge of the right lobe. Hemostasis with cautery. The abdomen was again irrigated and excellent hemostasis was assured. All remaining trocars were thenremoved and the pneumoperitoneum was evacuated. All trocar sites were closed at the skin level usinga running subcuticular closure of 4-0 Vicryl followed by Steri-Strips followed by Band-Aids. Overall, the patient tolerated the procedure well and was taken to the Recovery Room postoperatively in stable condition. Attestation: Case Date: 11/16/2018 I was present and I participated during the entire procedure (does not need to include opening and closing). ANIL NEWTON MD 12/08/2018 Brief Op Note - Anil Newton MD - 11/16/2018 12:28 PM EDT Brief Operative Note Patient Name: Betsy Feliciano : [id number] MR#: [id number] Case Date: 11/16/2018 Surgeon: Surgeon(s) and Role: * Anil Newton MD - Primary * Erick Yap MD - Resident Preoperative diagnosis: BILIARY DYSLEINSIC Postoperative diagnosis: BILIARY DYSLEINSIC Procedure(s) (LRB): LAPAROSCOPIC CHOLECYSTECTOMY (WRVU 10.47) (N/A) LAPAROSCOPIC LIVER BIOPSY (WRVU 16.52) (N/A) Anesthesia: General Findings: hepatomegaly and fatty liver, extreme Complications: none Intake: 700cc Output: Estimated Blood Loss: 37cc Drains: none Specimens removed during surgery: gallbladder and liver biopsy Disposition: same day Condition: stable Attestation: Case Date: 11/16/2018 I was present and I participated during the entire procedure (does not need to include opening and closing). (Please see the Surgical Encounter Summary for any Implant and Specimen details pertinent to this patient.) documented in this encounter Plan of Treatment Not on filedocumented as of this encounter Procedures Procedure Name Priority Date/Time Associated Comments Diagnosis SPECIMEN TO PATHOLOGY Routine 11/16/2018 12:02 Re sults for this PM EDT procedure are i n the results section. SPECIMEN TO PATHOLOGY Routine 11/16/2018 12:02 Re sults for this PM EDT procedure are i n the results section. SURGICAL PATHOLOGY Routine 11/16/2018 12:01 Resul ts for this REPORT PM EDT procedure are i n the results section. LAPAROSCOPIC LIVER Yes 11/16/2018 10:32 BILIARY DYSLEINSIC BIOPSY (WRVU 16.52) AM EDT LAPAROSCOPIC Yes 11/16/2018 10:32 BILIARY DYSLEINSIC CHOLECYSTECTOMY ([facility] AM EDT 10.47) documented in this encounter Results Specimen to Pathology (11/16/2018 12:02 PM EDT) Specimen Anatomical Collection Method Collection Time Receive d Time (Source) Location / / Volume Laterality AP Specimen 11/16/2018 12:02 11/16/2018 PM EDT 12:02 PM EDT Narrative [facility] OR - 11/16/2018 12:02 PM EDT Specimen requisition ordered. ??Separate Pathology report to follow Anil Newton MD PATHOLOGY/CYTOLOGY ORDERABLE S Performing Organization Address City/[facility] [place] [address] Specimen to Pathology (11/16/2018 12:02 PM EDT) Specimen Anatomical Collection Method Collection Time Receive d Time (Source) Location / / Volume Laterality AP Specimen 11/16/2018 12:02 11/16/2018 PM EDT 12:02 PM EDT Narrative [facility] OR - 11/16/2018 12:02 PM EDT Specimen requisition ordered. ??Separate Pathology report to follow Anil Newton MD PATHOLOGY/CYTOLOGY ORDERABLE S Performing Organization Address City/[facility] [place] [address] Surgical Pathology Report (11/16/2018 12:01 PM EDT) Component Value Ref Test Analysis Performed At [facility] gist Range Method Time Signature Surgical [id number] ? Location: [facility]; A [facility] Report The signing pathologist has (i) examined the relevant preparation(s) for the [facility] specimen(s) and (ii) rendered or confirmed the diagnosis(es) . HOSPITAL LABORATORY . ?Surgic al Pathology DIAGNOSIS A - Gallbladder: Mild chronic cholecystitis. B - Liver, biopsy: Liver parenchyma with preserved lobular architecture and mil d steatosis. There is no significant inflammation or fibrosis. Trichrome stain confirms H&E stain findings. Iron stain is negative for iron deposition. Electronically signed by: ??Bernadine Mcdonough MD Verified: ??11/17/2018 ?Pathologist Performed at: ??-[facility] Dept. of Pathology, [place], [place] CLINICAL INFORMATION Specimen Submitted: A - Gallbladder B - Liver biopsy Clinical History and Diagnosis: Biliary dyskinesia SPECIMEN PROCESSING A - Labeled/Fixative: Gallbladder, fresh. Quantity/Size: ??Single, 11 x 3 x 1.7 cm. Specimen Description: Gallbladder, received intact. Serosa: [place]-yellow, smooth and glistening [place]: Yellow-purple, cauterized Lumen contents: Yellow, viscous, bile. Gallstones: Absent Mucosa: [place]-red, velvety Wall: 0.1 cm thick. Duct: 0.3 cm, patent. Ink Designation: The hepatic margin is inked black Sections/Processing: Bottom [employer] sections in 1 cassettes as follows: ?A1: ??cystic duct margin and outbound call center representative mucosa. B - Labeled/Fixative: Liver biopsy, fresh. Quantity/Size: Single, 1.6 x 1.1 x 0.4 cm. Tissue Description: Unorient ed red-baez irregular shaped soft tissue. One surface is smooth and glistening, the opposite roughened and cauterized. The cauterized surface is inked black. Sectioning shows a baez-brown mildly conge sted cut surface. Sections/Processing: Entirely submitted in 1 cassette labeled B1. ??jmb Specimen (Source) Anatomical Collection Method Collection Time Re ceived Time Location / / Volume Laterality 11/16/2018 12:01 PM EDT Anil Newton MD PATHOLOGY/CYTOLOGY ORDERABLE S Performing Organization Address City/State/ZIP Code Phon e Number [address] [facility] documented in this encounter Visit Diagnoses Not on filedocumented in this encounter Administered Medications Inactive Administered Medications - up to 3 most recent administrations Medication Order MAR Action Action Date Dose Rate Site acetaminophen (TYLENOL) tablet Given 11/16/2018 8:56 AM EDT 1,00 0 mg 1,000 mg 1,000 mg, Oral, ONCE, 1 dose, On 11/16/18 at 0900, Administer with SIP of H2O only., Day of Surgery (Day of Procedure), Routine acetaminophen (TYLENOL) tablet 1,000 mg Given 11/16/2018 3:30 PM EDT 1,000 mg 1,000 mg, Oral, EVERY 6 HOURS PRN, 2 doses, Starting on Fri11/16/18 at 1504, Until Fri11/16/18 at 1619, Pain, Maximum dose of acetaminophen is 4000 mg from all sources in 24 hours., PACU Recovery, Routine BUpivacaine (PF) (MARCAINE) Given 11/16/2018 12:20 PM 2 mLs 19- Surgical Site 0.25 % (2.5 mg/mL) injection EDT ONCE PRN, Starting on Fri11/16/18 at 1220, Until Fri11/16/18 at 1822, Intra-Operative (Intra-Procedure), Routine gabapentin (NEURONTIN) capsule 300 mg Given 11/16/2018 8:56 AM EDT 300 mg 300 mg, Oral, ONCE, 1 dose, On Fri11/16/18 at 0900, Administer with SIP of H2O only., Day of Surgery (Day of Procedure), Routine ibuprofen (Advil;Motrin) (20 mg/mL) oral Given 11/16/2018 1:17 P M EDT 600 mg liquid 600 mg 600 mg, Oral, ONCE, 1 dose, On Fri11/16/18 at 1330, Administer orally with milk or food to minimize GI irritation Should be given concomitantly if other Analgesics are ordered., Routine lactated ringers infusion New Bag 11/16/2018 9:08 AM EDT 1,000 mLs 100 mL/hr 1,000 mL, at 100 mL/hr, Intravenous, CONTINUOUS, Starting on Fri11/16/18 at 0900, Until Fri11/16/18 at 1619, Day of Surgery (Day of Procedure) lidocaine (XYLOCAINE) 10 mg/mL (1 %) injection Given 0 11/16/2018 9:08 AM EDT 3 mg 3 mg 3 mg (0.3 mL), Subcutaneous, ONCE PRN, 1 dose, Starting on Fri11/16/18 at 0842, Until Fri11/16/18 at 0908, for discomfort with PIV insertion, Day of Surgery (Day of Procedure), Routine oxyCODONE (ROXICODONE) immediate release tablet Given 11/16/2018 1:17 PM EDT 5 mg 5 mg 5 mg, Oral, ONCE, 1 dose, On Fri11/16/18 at 1330, Routine promethazine (PHENERGAN) injection 12.5 mg Given 11/16/2018 1:18 PM EDT 12.5 mg 12.5 mg, Intravenous, EVERY 30 MIN PRN, 2 doses, Starting on Fri11/16/18 at 1300, Until Fri11/16/18 at 1619, Nausea, VESICANT - Dilute with a minimum of 10 mL saline. LARGE VEIN only. Inject over 10 minutes into the farthest port of a running IV infusion. Remain with the patient and STOP infusion immediately if patient reports burning. Avoid extravasation. If multiple antiemetics are ordered, use ondansetron first and if ineffective use prochlorperazine second and if ineffective use promethazine., PACU Recovery, Routine documented in this encounter Active and Recently Administered Medications Times are shown in EDT. Scheduled Medication Order 11/14/2018 11/15/2018 11/16/2018 acetaminophen (TYLENOL) tablet 1,000 mg (COMPLETED) 08 (Given - Provider: Bala Miller RN) 1,000 mg, Oral, ONCE, 1 dose, Fri 9 at 0900, Administer with SIP of H2O only., Day of Surgery (Day of Procedure), Routine gabapentin (NEURONTIN) capsule 300 mg (COMPLETED) 0856 (Given - Provider: Bala Miller RN) 300 mg, Oral, ONCE, 1 dose, Fri11/16/18 at 0900, Administer with SIP of H2O only., Day of Surgery (Day of Procedure), Routine ibuprofen (Advil;Motrin) (20 mg/mL) oral liquid 600 mg (COMPLETE D) 1317 (Given - Provider: Delta Barr RN) 600 mg, Oral, ONCE, 1 dose, Fri11/16/18 at 1330, Administer orally with milk or food to minimize GI irritation Should be given concomitantly if other Analgesics are ordered., Routine oxyCODONE (ROXICODONE) immediate release tablet 5 mg (COMPLETED) 1317 (Given - Provider: Delta Barr RN) 5 mg, Oral, ONCE, 1 dose, Fri11/16/18 at 1330, Routine Continuous Medication Order 11/14/2018 11/15/2018 11/16/2018 lactated ringers infusion (CANCELED) 0908 (New Bag - Provider: Bala Miller RN)1119 (Canceled Entry - Provider: Chico Cunningham MD)1229 (Anesthesia Volume Adjustment - Provider: Chico Cunningham MD) 1,000 mL, at 100 mL/hr, Intravenous, CON TINUOUS, Starting Fri11/16/18 at 0900, Until Fri11/16/18 at 1619, Day of Surgery (Day of Procedure) PRN Medication Order 11/14/2018 11/15/2018 11/16/2018 acetaminophen (TYLENOL) tablet 1,000 mg (CANCELED) 1530 (Given - Provider: Delta Barr, RN) 1,000 mg, Oral, EVERY 6 HOURS PRN, 2 dos es, Starting Fri11/16/18 at 1504, Until Fri11/16/18 at 1619, Pain, Maximum dose of acetaminophen is 4000 mg from all sources in 24 hours., PACU Recovery, Routine BUpivacaine (PF) (MARCAINE) 0.25 % (2.5 mg/mL) injection (CANCEL ED) 1220 (Given - Provider: Anil Newton MD) ONCE PRN, Starting Fri11/16/18 at 1220, Until Fri11/16/18 at 1822, Intra- Operative (Intra-Procedure), Routine lidocaine (XYLOCAINE) 10 mg/mL (1 %) injection 3 mg (COMPLETED) 0908 (Given - Provider: Bala Miller RN) 3 mg (0.3 mL), Subcutaneous, ONCE PRN, 1 dose, Starting Fri11/16/18 at 0842, Until Discontinued, for discomfort with PIV insertion, Day of Surgery (Day of Procedure), Routine promethazine (PHENERGAN) injection 12.5 mg (CANCELED) 1318 (Given - Provider: Delta Barr, JOSE) 12.5 mg, Intravenous, EVERY 30 MIN PRN, 2 doses, Starting Fri11/16/18 at 1300, Until Fri11/16/18 at 1619, Nausea, VESICANT - Dilute with a minimum of 10 mL saline. LARGE VEIN only. Inject over 10 minute s into the farthest port of a running IV infusion. Remain with the patient and STOP infusion immediately if patient reports burning. Avoid extravasation. If multiple antiemetics are ordered, use onda nsetron first and if ineffective use pro chlorperazine second and if ineffective use promethazine., PACU Recovery, Routine documented in this encounter Care Teams Weather Forcaster Relationship Specialty Start Date End Date Ling Roque, TONI PCP - General Family Medicine 03/18/[address] [place] [address] documented as of this encounter
--- OUTSIDE RECORDS SUMMARY | 2022-02-25 07:42 | XMS_ITS | Encounter Summary ---
:1970 Author Organization [facility] Address [address] [place] [address] Care Team Providers Name Role Phone Unavailable Primary Care Provider Unavailable Encounter Details Date Type Department Care Team Description 09/17/2007 Results Only [facility] - Ela Jacques MD [address] [place] [address] [place] [address] [phone] Social History Tobacco Use Types Packs/Day Years Used Date Never Assessed Sex Assigned at Date Recorded Not on file documented as of this encounter Plan of Treatment Not on filedocumented as of this encounter Procedures Procedure Name Priority Date/Time Associated Diagnosis Comme nts CYTOPATHOLOGY Routine 09/17/2007 0:00 EDT Results for this procedure are i n the results section . documented in this encounter Results CYTOPATHOLOGY (09/17/2007 0:00 EDT) Pathology Report: CYTOPATHOLOGY REPORT [facility] Reports generated via electronic interface contain lauren ginal data; however they are lacking the format of the original re port. Caution should be taken when reading/interpreting unfo rmatted reports. Name: ? BETSY FELICIANO ? Accession #: ? [id number] : ? 1970 (Age: 37) ??F ?Collect Date: ? 08/25 Location: ? [facility] ? Receive Date : ? 09/18/2007 Provider: ?ELA LEE MD Copy to: ? Specimen/Source: ? ThinPrep Pap Test, Cervix/Endocervix, processed on [employer] ThinPrep Imaging System, with manual evaluation Last Menstrual Period: ? 08-25-07 Other: ? HPVA - HPV testing requested if ASC-US on the current ThinPrep Pap test. ? SPECIMEN ADEQUACY ? Satisfactory for Evaluation - transformation zone component present GENERAL CATEGORIZATION ? Negative for Intraepithelial Lesion or Malignan cy INTERPRETATION ? Shift in mimi present suggestive of bacterial vaginosis. ? Document reviewed and electronically signed by: ? TRESA Cobb(ASCP) ? Report Date: ??09/23/2007 08:53 End of Report Specimen Performing Organization Address City/State/ZIP Code Phon e Number [facility] [address] [place] [address] SERVICES [facility] [address] [place] [address] documented in this encounter Visit Diagnoses Not on filedocumented in this encounter
--- OUTSIDE RECORDS SUMMARY | 2022-02-25 07:42 | XMS_ITS | Encounter Summary ---
:1970 Author Organization [facility] [place] [address] Care Team Providers Name Role Phone Ling Roque TONI Primary Care Provider Reason for Visit Reason Comments Establish Care Gallbladder Consultation (Routine) - Specialty Diagnoses / Procedures Referred By Contact Refer red To Contact General Surgery Diagnoses GALLBLADDER HernandezAnthony, Anil Lora MD [address] [place] [address] [place] [address] [place] [address] Phone: Fax: Referral ID Status Reason Start Date Expiration Date Visits V isits Requested Authorized [id number] 04/27/2018 04/27/2019 1 1 Encounter Details Date Type Department Care Team Description 10/28/2018 Office Visit General Surgery at [facility] Anil Aguilar, Biliary dyskinesia [facility] [place] [address] GENERAL SURGERY [place], [place] [address] (Wo rk) Social History Tobacco Use Types Packs/Day Years Used Date Never Smoker Smokeless Tobacco: Never Used Alcohol Use Standard Drinks/Week Comments No 0 (1 standard drink = 0.6 oz pure alcoho l) Sex Assigned at Date Recorded Not on file documented as of this encounter Last Filed Vital Signs Vital Sign Reading Time Taken Comments Blood Pressure 154/84 10/28/2018 8:46 AM EDT Pulse 78 10/28/2018 8:46 AM EDT Temperature 36.5 ??C (97.7 ??F) 10/28/2018 8:46 AM EDT Respiratory Rate 12 10/28/2018 8:46 AM EDT Oxygen Saturation 98% 10/28/2018 8:46 AM EDT Inhaled Oxygen Concentration - - Weight 192.1 kg (423 lb 8 oz) 10/28/2018 8:46 AM EDT Height 170.2 cm (5' 7.01) 10/28/2018 8:46 AM EDT Body Mass Index 66.31 10/28/2018 8:46 AM EDT documented in this encounter Progress Notes Anil Aguilar MD - 10/28/2018 8:40 AM EDT Patient is a 48-year-old female who is referred for possible cholecystectomy. She tells a story of. Episodes of upper abdominal discomfort typically postprandial associated with nausea and diarrhea andabdominal pain. This has been evaluated with an ultrasound which was negative for any gallbladder pat hology and she is noted to have fatty liver and hepatomegaly. This was subsequently followed up witha nuclear HIDA scan which had an ejection fraction of 29% with upper limit of normal being 38%. She does however state that the administration of the cholecystokinin reproduced her symptoms. She is nowbeen referred for possible cholecystectomy for biliary dyskinesia. She has had a previous hysterectomy. She is morbidly obese with a BMI of 67. I spent 40 minutes today with the patient as well as her significant other entire time in [id number] conversation regarding pathophysiology of gallbladder pathology as well as risks and benefits of surgery. I reviewed with them that the best results from cholecystectomy are associated with a perfect story for biliary colic with an ultrasound showing gallstones. Once the patient gets away from the used to optimal situations the results from cholecystectomyare less optimal. There is a strong possibility that a cholecystectomy will not resolve all of her symptoms and there is a chance that some of her symptoms could be due to adhesions from her previous surgery. I mentioned all the risks would include possibility of infection possibility of bleeding requiring transfusion possibility of conversion open surgery and a possibility of bile duct injury of less than 1%. I think the biggest challenge of her will be her level of obesity. I reviewed with him in the strongest possible terms the importance of complying with the low-fat preop diet for 2 weeks prior to date of surgery. I also told him that noncompliance with this diet could result in inability to proceed with surgery if I am not able to mobilize the liver and see the anatomy in a safe manner. I would not convert to open surgery if this was a situation as I do not think it would help and I do have a solution for fatty liver and its the preop diet and it my opinion it only does not work if someone is not compliant. With this in mind we will give her date for a laparoscopic cholecystectomy with ch olangiogram at some point in the near future. documented in this encounter Plan of Treatment Not on filedocumented as of this encounter Visit Diagnoses Diagnosis Biliary dyskinesia Other specified disorder of gallbladder documented in this encounter Care Teams Tank Terminal Gauger Relationship Specialty Start Date End Date Ling Roque, TONI PCP - General Family Medicine 03/18/[address] [place] [address] documented as of this encounter
--- OUTSIDE RECORDS SUMMARY | 2022-02-25 07:42 | XMS_ITS | Encounter Summary ---
:1970 Author Organization [facility] [place] [address] Care Team Providers Name Role Phone Ling Roque APRN Primary Care Provider Reason for Visit Diagnostic Test (Routine) - Closed Specialty Diagnoses / Procedures Referred By Contact Refer red To Contact Radiology Diagnoses Right upper quadrant abdominal pain Anthony Hernandez DO [facility] Rad Nuclear Med Procedures NM Functional Biliary Scan [address] [place] [address] [place] [address] Phone: Fax: Referral ID Status Reason Start Date Expiration Date Visits V isits Requested Authorized [id number] Closed Specialty 03/17/2018 03/17/2019 2 2 Service Requested Encounter Details Date Type Department Care Team Description 03/19/2018 Hospital Encounter Nuclear Medicine at Isaura Hernandez DO [facility] [address] [facility] [address] [place] [address] [phone] Social History Tobacco Use Types Packs/Day Years [...] the abdomen was obt ained in the BERMUDIAN projection 60 minutes later. A fatty meal [...] the abdomen was obt ained in the BERMUDIAN projection 60 minutes later. A fatty meal [...] with chronic gallbladder or biliary disease. Anthony L Hernandez DO IMG NM ORDERABLES documented in this encounter Visit Diagnoses Not on filedocumented in this encounter Care Teams Snout Puller Relationship Specialty Start Date End Date Ling Roque APRN PCP - General Family Medicine 03/18/18 [address] [place] [address] documented as of this encounter
--- OUTSIDE RECORDS SUMMARY | 2022-02-25 07:42 | XMS_ITS | Encounter Summary ---
:1970 Author Organization [facility] Address [address] [place] [address] Care Team Providers Name Role Phone Ela Kurtz MD Primary Care Provider Encounter Details Date Type Department Care Team Description 08/16/2020 Lab Requisition [facility] Outr Resulting Lab, Pathology & Laboratory Provider [facility] [address] [place] [address] Social History Tobacco Use Types Packs/Day Years Used Date Never Assessed Sex Assigned at Date Recorded Not on file documented as of this encounter Plan of Treatment Not on filedocumented as of this encounter Procedures Procedure Name Priority Date/Time Associated Diagnosis Comme nts COVID-19 [facility] Today 08/16/2020 9:18 EDT LAB PCR COVID-19 TESTING Routine 08/16/2020 9:18 EDT Resu lts for this procedure are i n the results section. documented in this encounter Results COVID-19 TEST [facility] LAB PCR (08/16/2020 9:18 EDT) Specimen Swab - Entire nasopharynx (body structur e) Performing Organization Address City/State/ZIP Code Phon e Number [facility] [address] [place] [address] SERVICES COVID-19 TESTING (08/16/2020 9:18 EDT) COVID-19 rt-PCR Negative Negative [facility] Result Comment: [facility] This test has not been FDA c leared or approved. This test has been authorized by FDA under an EUA for use by authorized laboratories. This test has been authorized only for detection of nucleic acid fro SERVICES m 2019-nCoV, not for any oth er viruses or pathogens. This test is only authorized for the duration of the declaration that circumstances exist justifying the authorization of emergency use of in vitro d iagnostic tests for detectio n and/or diagnosis of 2019-nCoV under section 564(b)(1) of Act, 21 U.S.C ?? 360bbb-3(b) (1), unless the authorization is terminated or revoked sooner. Negative results do not prec lude 2019-nCoV infection and should not be used as the sole basis for treatment or other patient management decisions. Negative results must be combined with clinical observa tions, patient history, and epidemiological informatio n. This test was developed and its performance characteristics determined by [facility]. It has not been cleared or approved by the US Food and Drug Administration. FDA does not require this test to go through premarket FDA review. This t est is used for clinical purposes. It should not be regarded as investigational or for research. This laboratory is certified under the Clinical Laboratory Improvement Amendm ents (CLIA) as qualified to perform high complexity clinical laboratory testing. This test is based on the CD C COVID-19 Emergency Use Authorization (EUA) assay, with minor modification as defined by the FDA Performed on the Fizo 7 Flex RT-PCR System. Performing Lab [facility] SERVICES Specimen Swab Performing Organization Address City/State/ZIP Code Phon e Number [facility] [address] [place] [address] SERVICES documented in this encounter Visit Diagnoses Not on filedocumented in this encounter Care Teams Draw Frame Runner Relationship Specialty Start Date End Date Ela Kurtz MD PCP - General 12/16/[address] [place] [address] [address] [place], [place] [id number] documented as of this encounter
--- OUTSIDE RECORDS SUMMARY | 2022-02-25 07:42 | XMS_ITS | Clinical Summary ---
:1970 Author Organization [facility] [place] [address] Care Team Providers Name Role Phone Mya Ling Joaquin MUÑOZ Primary Care Provider Allergies Active Allergy Reactions Severity Noted Date Comments Penicillins Anaphylaxis High Medications Medication Sig Dispensed Refills Start Date End Date Status montelukast TAKE ONE TABLET BY 4 10/19/2018 Active (SINGULAIR) 10 mg MOUTH EVERY Tablet MORNING FOR ALLERGIC RHINITIS loratadine (CLARITIN) Take 10 mg by 0 07/03/2018 Active 10 mg Tablet mouth daily. Lactase (LACTAID FAST Take 9,000 Units 0 Active ACT) 9,000 unit Tablet by mouth daily. loperamide (IMODIUM) 2 Take 2 mg by mouth 0 Active mg Capsule 4 times daily as needed for Diarrhea. Active Problems Problem Noted Date Serous cystadenoma, borderline malignancy 09/01/2013 Morbid obesity with BMI of 60.0-69.9, adult 09/01/2013 Complex endometrial hyperplasia with atypia 09/01/2013 Family History Medical History Relation Comments Lung Cancer Maternal Grandfather Lung Cancer Maternal Grandmother Ovarian Cancer Mother LMP Breast Cancer Other aunt dbl mastectomy Relation Status Comments Maternal Grandfather Maternal Grandmother Mother Other Social History Tobacco Use Types Packs/Day Years Used Date Never Smoker Smokeless Tobacco: Never Used Alcohol Use Standard Drinks/Week Comments No 0 (1 standard drink = 0.6 oz pure alcoho l) Sex Assigned at Date Recorded Not on file Last Filed Vital Signs Vital Sign Reading Time Taken Comments Blood Pressure 145/85 11/16/2018 2:30 PM EDT Pulse 74 11/16/2018 2:30 PM EDT Temperature 36.5 ??C (97.7 ??F) 11/16/2018 12:54 PM EDT Respiratory Rate 18 11/16/2018 2:30 PM EDT Oxygen Saturation 95% 11/16/2018 2:30 PM EDT Inhaled Oxygen Concentration - - Weight 186.2 kg (410 lb 6.4 oz) 12/10/2018 10:04 AM EDT Height 170.2 cm (5' 7) 12/10/2018 10:04 AM EDT Body Mass Index 64.28 12/10/2018 10:04 AM EDT Plan of Treatment Health Maintenance Due Date Last Done Comments Covid-19 Vaccine (#1) 1975 HIV screen 02/19/1988 Hepatitis C Screening 02/19/1988 Tdap adult 1989 Tetanus vaccine 1989 HPV test 02/19/2000 PAP Smear 02/19/2000 Breast Cancer Share Decision Needed 2010 Colonoscopy 2015 Breast Cancer screening 02/19/2020 Zoster vaccine (1 of 2) 02/19/2020 Influenza (Flu) vaccine (1 of 1 - Influenza standard 01/24/2022 series) Insurance Payer Benefit Plan / Subscriber ID Effective Dates Phone Addre ss Type Group [employer] [place] [id number] 2018-Present [address] [facility] [address] (Work) [phone] Care Teams Saw Grinder Relationship Specialty Start Date End Date Ling Roque, EXPLOSIVE ORDNANCE DISPOSAL TECHNICIAN PCP - General Family Medicine 03/18/[address] [place], [place] [address]
--- OUTSIDE RECORDS SUMMARY | 2022-02-25 07:42 | XMS_ITS | Encounter Summary ---
:1970 Author Organization [facility] [place] [address] Care Team Providers Name Role Phone Ling Roque TONI Primary Care Provider Reason for Visit Auth/Cert Specialty Diagnoses / Procedures Referred By Contact Refer red To Contact Diagnoses BILIARY DYSLEINSIC Procedures PRO LAP, CHOLECYSTECTOMY/GRAPH LAPAROSCOPIC CHOLECYSTECTOMY WITH CHOLANGIOGRAM (WRVU 11.47) Referral ID Status Reason Start Date Expiration Date Visits Requ ested Visits Authorized [id number] 1 1 Encounter Details Date Type Department Care Team Description 11/16/2018 Anesthesia Event Main Operating Room Davian Durbin MD [facility] [place] [address] [facility] Chico Cunningham MD [facility] [place] [address] [place] [address] Anesthesia Record Procedure Summary Procedure Name Responsible Anesthesia Start Anesthesia Stop Anesthesiologist Time Time LAPAROSCOPIC Moustapha Durbin MD 11/16/18 1032 11/16/18 1259 CHOLECYSTECTOMY (WRVU 10.47) (N/A Abdomen) Events Date Time Event Comment 11/16/2018 0921 1032 AN Verify 1032 Start 1032 An Start Data 1040 An Induction 1043 An Intubation 1045 Anesthesia Ready 1110 Procedure Start 1250 Extubation/LMA Out 1250 an stop data 1258 Recovery or ICU Handoff Patient care was transferred to the destination unit staff after review of the patient's medica l history, current anesthetic/surgi kendall status and plan, according to the Provider Handoff Checklist. 1259 Stop Name Total Midazolam 2 mg fentaNYL 200 mcg IV Lidocaine 100 mg Propofol 300 mg Rocuronium 80 mg PHENYLephrine 80 mcg Ondansetron 4 mg Neostigmine 4 mg Glycopyrrolate 0.4 mg Propofol INF 451.98 mg ceFAZolin 3 g Dexmedetomidine 8 mcg lactated ringers infusion 700 mL Agents Name O2 Air N2O Sevoflurane (et) Blood No blood administrations on file. Lines, Drains, and Airways Type Details Placement Removal Incision 11/16/18; abdomen; 11/16/18 0000 by Lindsay, 12/25 02/14 1715 by laparoscopic punctures JOSE Sutherland D ierdre L (specify); multiple trocar sites; 01/21/22 (LDA cleanup utility RA#[id number]); 1715 (LDA cleanup utility RA#[id number]) PIV 11/16/18; 0906; metacarpal 11/16/18 0906 by Musa grewal, 11/16/18 1619 by Del vein (top of hand), left; JOSE Escalante, Delta Parrish, JOSE naef-mre-ytudos catheter system; 22 gauge; Rosa M Banda RN; distraction, intradermal injection; 11/16/18; 1619 ETT Mask Ventilation: Adjunct 11/16/18 1048 by 11/16 1250 by (2); ETT Type: Cuffed; ETT Chico Cunningham Lewandowski, Nicholas Size: 7.5 mm; Mac Blade: 3; Saima POLK Notes: Asleep; Attempts: 1; Laryngoscopy Grade: 1; ETT Placement Verified By: Auscultation, Capnometry; Secured at Teeth: 22 cm; Inserted by: Chico Cunningham MD documented in this encounter Social History Tobacco Use Types Packs/Day Years Used Date Never Smoker Smokeless Tobacco: Never Used Alcohol Use Standard Drinks/Week Comments No 0 (1 standard drink = 0.6 oz pure alcoho l) Sex Assigned at Date Recorded Not on file documented as of this encounter OR Notes Anesthesia Postprocedure Evaluation - Chico Cunningham MD - 11/16/2018 1:38 PM EDT Department of Anesthesiology Post-procedure Note Patient: Betsy Feliciano Procedure Summary Date: 11/16/18 Room / Location: [address] MAIN OR Anesthesia Start: 1032 Anesthesia Stop: Procedures: LAPAROSCOPIC CHOLECYSTECTOMY (WRVU 10.47) (N/A Abdomen) LAPAROSCOPIC LIVER BIOPSY (WRVU 16.52) (N/A Abdomen) Diagnosis: (BILIARY DYSLEINSIC) Surgeon: Anil Aguilar MD Responsible Provider: Moustapha Durbin MD Anesthesia Type: general ASA Status: 3 All Anesthesia Providers: Anesthesiologist: Moustapha Durbin MD SUPERVISOR PURIFICATION: Jony Garza CRNA Red Lead Burner: Chico Cunningham MD Vitals Value Taken Time BP 152/92 11/16/2018 12:54 PM Temp 36.5 ??C (97.7 ??F) 11/16/2018 12:54 PM Pulse 79 11/16/2018 12:54 PM Resp 18 11/16/2018 12:54 PM SpO2 95 % 11/16/2018 12:54 PM Pain Level Patient Location: PACU/[facility] Level of Consciousness: Conscious but Sleepy Pain Management: Satisfactory Analgesia PONV: None Cardiovascular Status: At Baseline and Hemodynamically Stable Respiratory Status: At Baseline and Room Air Postoperative Fluid Status: Intravascular EUvolemia Possible Anesthetic Complications: NONE apparent at time of evaluation Final Primary Anesthesia Type: General (The anesthetic type performed was the same as planned.) Comments: Anesthesia Preprocedure Evaluation - Moustapha Durbin MD - 11/15/2018 3:01 PM EDT Pre-Anesthesia Evaluation for: Betsy Feliciano a 48 y.o. female. Procedure(s): LAPAROSCOPIC CHOLECYSTECTOMY WITH CHOLANGIOGRAM (WRVU 11.47) Patient Active Problem List Diagnosis ??? Serous cystadenoma, borderline malignancy ??? Morbid obesity with BMI of 60.0-69.9, adult ??? Complex endometrial hyperplasia with atypia No past medical history on file. Past Surgical History: Procedure Laterality Date ??? KNEE SURGERY Social History Tobacco Use ??? Smoking status: Never Smoker ??? Smokeless tobacco: Never Used Substance Use Topics ??? Alcohol use: No Social History Substance and Sexual Activity Drug Use No Allergies Allergen Reactions ??? Penicillins Anaphylaxis Medications: MAR and/or home medications have been reviewed. Physical Exam: There were no vitals filed for this visit. There is no height or weight on file to calculate BMI. Airway Assessment: Mallampati: I TM distance: >3 FB Neck ROM: full Cardiovascular Assessment: Rhythm: regular Rate: normal Pulmonary Assessment: breath sounds clear to auscultation Dental Assessment: - normal exam Misc Assessment: Anesthesia Plan: ASA 3 general, with a(n) intravenous induction Betsy Feliciano is a 48 y.o. female with a hx significant for endometrial complex hyperplasia s/p radical hysterectomy/BSO in 2007, morbid obesity (BMI 67), allergic rhinitis (singuliar, loratadine) biliary dyskinesia presenting for the following procedure(s): Procedure(s): LAPAROSCOPIC CHOLECYSTECTOMY WITH CHOLANGIOGRAM (WRVU 11.47) Allergies: -- Penicillins -- Anaphylaxis Anesthesia Hx: Radical hysterectomy/BSO in 2007 - no anesthetic records available for review at thistime, - patient denies any history of adverse reactions to general anesthesia. NPO status: adequate Pt activity level prior to surgery/admission to hospital: METs > 4 EKG: No prior studies available for review TTE: No prior studies available for review. Labs: No results for input(s): WBC, HGB, HCT, PLATELET in the last 7068 hours. No results for input(s): NA, K, CL, CO2, BUN, CREATININE in the last 7068 hours. No results for input(s): AST, ALT, ALKPHOS, BILITOT, BILIDIR in the last 7068 hours. No results for input(s): PT, INR, PTT in the last 168 hours. No results found for: ABORH Plan is for GA with ETT, standard ASA monitors, and adequate IV access. Intra- operative propofol infusion. Chico Cunningham MD PGY-1, Dye Padder Operator Pager #[phone] Addendum 11/16/2018 (MD Ramakrishna): as above. No interval change. Pt feels well. No n/v/pain. Morbid obesity. Denies LUIGI. Requests to proceed. Informed Consent: Anesthetic plan and risks discussed with patient and spouse. Plan discussed with SUPERVISOR PURIFICATION and resident. PAT Clinic Note documented in this encounter Plan of Treatment Not on filedocumented as of this encounter Visit Diagnoses Not on filedocumented in this encounter Administered Medications Inactive Administered Medications - up to 3 most recent administrations Medication Order MAR Action Action Date Dose Rate Site ceFAZolin (ANCEF) 1g in dextrose 5% Given 11/16/2018 11:05 AM ED T 3 g 50mL PRN, Starting on Fri11/16/18 at 1120, Until Fri11/16/18 at 1407, Administer over 30 Minutes, Anesthesia Intra-op dexmedetomidine (PRECEDEX) injection Given 11/16/2018 11:30 AM EDT 8 mcg PRN, Starting on Fri11/16/18 at 1130, Until Fri11/16/18 at 1407, Anesthesia Intra-op, Routine fentaNYL 50 mcg/mL multi-dose injection Given 11/16/2018 11:26 AM EDT 50 mcg PRN, Starting on Fri11/16/18 at 1040, Until Fri11/16/18 at 1407, Anesthesia Intra-op, Routine Given 11/16/2018 11:15 AM EDT 50 mcg Given 11/16/2018 11:10 AM EDT 50 mcg glycopyrrolate (ROBINUL) multi-dose Given 11/16/2018 12:28 PM ED T 0.4 mg injection PRN, Starting on Fri11/16/18 at 1228, Until Fri11/16/18 at 1407, Anesthesia Intra-op, Routine lidocaine (PF) (XYLOCAINE) 100 mg/5 mL (2 %) Given 10:40 AM EDT 100 mg injection PRN, Starting on Fri11/16/18 at 1040, Until Fri11/16/18 at 1407, Anesthesia Intra-op, Routine midazolam (PF) (VERSED) multi-dose injec tion Given 11/16/2018 10:40 AM EDT 1 mg PRN, Starting on Fri11/16/18 at 1040, Until Fri11/16/18 at 1407, Anesthesia Intra-op, Routine Given 11/16/2018 10:30 AM EDT 1 mg neostigmine (BLOXIVERZ) injection Given 11/16/2018 12:28 PM EDT 4 mg PRN, Starting on Fri11/16/18 at 1228, Until Fri11/16/18 at 1407, Anesthesia Intra-op, Routine ondansetron (ZOFRAN) injection Given 11/16/2018 12:28 PM EDT 4 mg PRN, Starting on Fri11/16/18 at 1228, Until Fri11/16/18 at 1407, Anesthesia Intra-op, Routine PHENYLephrine in NS (PF) (DIOMEDES-SYNEPHRINE) Given 11/16/2018 11:30 AM EDT 80 mcg 0.8 mg/10 mL (80 mcg/mL) multi-dose injection Syrg PRN, Starting on Fri11/16/18 at 1130, Until Fri11/16/18 at 1407, Anesthesia Intra-op, Routine propofol (DIPRIVAN) 10 mg/mL bolus injection Given 10:40 AM EDT 300 mg (Anesthesia) PRN, Starting on Fri11/16/18 at 1040, Until Fri11/16/18 at 1407, Anesthesia Intra-op propofol (DIPRIVAN) Rate/Dose 11/16/2018 11:45 15 mcg/kg/min 16.7 mL /hr infusion Change AM EDT CONTINUOUS PRN, Starting on Fri11/16/18 at 1045, Until Fri11/16/18 at 1407, Anesthesia Intra-op, Routine New Bag 11/16/2018 10:45 AM EDT 30 mcg/kg/min 33.5 mL/hr rocuronium (ZEMURON) multi-dose injectio n Given 11/16/2018 10:40 AM EDT 80 mg PRN, Starting on Fri11/16/18 at 1040, Until Fri11/16/18 at 1407, Anesthesia Intra-op, Routine documented in this encounter Care Teams Fabricator Artificial Breast Relationship Specialty Start Date End Date Ling Roque, TONI PCP - General Family Medicine 03/18/[address] [place] [address] documented as of this encounter
--- OUTSIDE RECORDS SUMMARY | 2022-02-25 07:42 | XMS_ITS | Clinical Summary ---
:1970 Author Organization [facility] Address [address] [place] [address] Care Team Providers Name Role Phone Ela Kurtz MD Primary Care Provider Social History Tobacco Use Types Packs/Day Years Used Date Never Assessed Sex Assigned at Date Recorded Not on file Plan of Treatment Not on file Care Teams Wire Worker Relationship Specialty Start Date End Date Ela Kurtz MD PCP - General 12/16/[address] [place] [address] [place], [place] [id number]
--- OUTSIDE RECORDS SUMMARY | 2022-02-25 07:42 | XMS_ITS | Encounter Summary ---
:1970 Author Organization [place] [address] Care Team Providers Name Role Phone Ling Roque Joaquin MUÑOZ Primary Care Provider Reason for Visit Auth/Cert Specialty Diagnoses / Procedures Referred By Contact Refer red To Contact Diagnoses BILIARY DYSLEINSIC Procedures PRO LAP, CHOLECYSTECTOMY/GRAPH LAPAROSCOPIC CHOLECYSTECTOMY WITH CHOLANGIOGRAM (WRVU 11.47) Referral ID Status Reason Start Date Expiration Date Visits Requ ested Visits Authorized [id number] 1 1 Encounter Details Date Type Department Care Team Description 11/16/2018 Hospital Encounter Same Day Program at Nisreen Newton, [facility] [address] [facility] [place] [address] [place] [address] [phone] (Wo rk) Social History Tobacco Use Types [...] usually goes away in 12-24 hours. Patient InstructionsMarelyErick - 11/16/2018 12:57 PM EDT Instructions following [...] 101.3 F. The number for questions is [phone] before 5 PM weekdays and [phone] after 5 PM and weekends. Pain Medication: You may use ibuprofen alternating with tylenol for pain control Follow-up: Follow-up appointment will be scheduled with Dr. Newton in 4 weeks. Appointment will be mailed to you. Please call [phone] (clinic number for appointments) to confirm date [...] Newton MD - 11/16/2018 3:45 PM EDT [facility] [place] Patient Name: Betsy Feliciano : [id number] MR#: [id number] Case Date: 11/16/2018 Surgeon: Surgeon(s) and Role: [...] Operative Note Patient Name: Betsy Feliciano : [id number] MR#: [id number] Case Date: 11/16/2018 Surgeon: Surgeon(s) and Role: [...] 11/16/2018 PM EDT 12:02 PM EDT Narrative [facility] [place] - 11/16/2018 12:02 PM EDT Specimen requisition ordered. ??Separate Pathology report to follow Anil Newton MD PATHOLOGY/CYTOLOGY ORDERABLE S Performing Organization Address City/[facility]/[place] [address] Specimen to Pathology (11/16/2018 12:02 PM EDT) Specimen Anatomical Collection Method Collection Time Receive d Time (Source) Location / / Volume Laterality AP Specimen 11/16/2018 12:02 11/16/2018 PM EDT 12:02 PM EDT Narrative [facility] [place] - 11/16/2018 12:02 PM EDT Specimen requisition ordered. ??Separate Pathology report to follow Anil Newton MD PATHOLOGY/CYTOLOGY ORDERABLE S Performing Organization Address City/[facility] [place] [address] Surgical Pathology Report (11/16/2018 12:01 PM EDT) Component Value Ref Test Analysis Performed At [facility] Range Method Time Signature Surgical [id number] ? Location: [facility]; [facility]; [facility] Report The signing pathologist has (i) examined the relevant preparation(s) for the [facility] specimen(s) and (ii) rendered or confirmed [...] Mcdonough MD Verified: ??11/17/2018 ?Pathologist Performed at: ??-[facility] [place] Dept. [place], [place], [place] CLINICAL INFORMATION Specimen Submitted: A - Gallbladder B - Liver biopsy Clinical History and Diagnosis: Biliary dyskinesia SPECIMEN PROCESSING A - Labeled/Fixative: Gallbladder, fresh. Quantity/Size: ??Single, 11 x 3 x 1.7 cm. Specimen Description: Gallbladder, received intact. Serosa: Sandborn-yellow, smooth and glistening Adventitia: Yellow-purple, cauterized Lumen contents: Yellow, viscous, bile. Gallstones: Absent Mucosa: Sandborn-red, velvety Wall: 0.1 cm thick. Duct: 0.3 cm, patent. Ink Designation: The hepatic margin is inked black Sections/Processing: Doctor Of Medicine sections in 1 cassettes as follows: ?A1: ??cystic duct margin and inside sales representative mucosa. B - Labeled/Fixative: Liver biopsy, [...] Organization Address City/State/[place] [address] [facility] [address] documented in this encounter Visit Diagnoses Not [...] sources in 24 hours., PACU Recovery, Routine gabapentin (NEURONTIN) capsule 300 mg Given [...] Routine documented in this encounter Care Teams Corner Bead Operator Relationship Specialty Start Date End Date Ling Roque, FREELANCE MAKEUP ARTIST PCP - General Family Medicine 03/18/[address] [place] [address] [address] [place] [address] (work) documented as of this encounter
--- OUTSIDE RECORDS SUMMARY | 2022-02-25 07:42 | XMS_ITS | Encounter Summary ---
:1970 Author Organization [facility] Address [address] [place] [address] Care Team Providers Name Role Phone Ela Kurtz MD Primary Care Provider Encounter Details Date Type Department Care Team Description 12/17/2013 Hospital Encounter [facility] - Kinga Barbosa MD [facility] [address] [place] [address] [place] [address] [phone] Social History Tobacco Use Types Packs/Day Years Used Date Never Assessed Sex Assigned at Date Recorded Not on file documented as of this encounter Discharge Diagnoses Diagnosis V72.5 RADIOLOGICAL EXAM NEC[ICD-9-CM] documented in this encounter Discharge Disposition Disposition Code Departure Means Destination Home or Self Group Home documented in this encounter Plan of Treatment Not on filedocumented as of this encounter Visit Diagnoses Not on filedocumented in this encounter Care Teams Solar Manufacturer'S Representative Relationship Specialty Start Date End Date Ela Kurtz MD PCP - General 12/16/[address] [place] [address] [place] [address] documented as of this encounter
--- OUTSIDE RECORDS SUMMARY | 2022-02-25 07:42 | XMS_ITS | Encounter Summary ---
:1970 Author Organization [facility] Address [address] [place] [address] Care Team Providers Name Role Phone Unavailable Primary Care Provider Unavailable Encounter Details Date Type Department Care Team Description 11/06/2007 Hospital Encounter [facility] - Serafin Reis MD [facility] [address] [place] [address] [place] [address] Social History Tobacco Use Types Packs/Day Years Used Date Never Assessed Sex Assigned at Date Recorded Not on file documented as of this encounter Discharge Disposition Disposition Code Departure Means Destination Auto Discharge documented in this encounter Plan of Treatment Not on filedocumented as of this encounter Procedures Procedure Name Priority Date/Time Associated Diagnosis Comme nts MR EXTREMITY KNEE 12/17/2013 13:39 Result s for this WO CONTRAST EDT procedure are i n the results section. MR PELVIS FEMALE 11/06/2007 15:56 Results for this W/WO CONTRAST EDT procedure are in the results section. documented in this encounter Results MR EXTREMITY KNEE WO CONTRAST (12/17/2013 13:39 EDT) Anatomical Region Laterality Modality Other Specimen Narrative MR ROOM 1 [facility] - 12/17/2013 18:30 EDT MR EXTREMITY KNEE WO CONTRAST ??12/17/2013 1:39 PM Signs and Symptoms/Comments: ?? Left knee pain, popping. Comparison: None Technique: Routine MR sequences were performed of t he left knee using a head coil secondary to the patient's size. Findings: The extensor mechanism appears intact. T he patient is status post ACL graft reconstruction with multiple screw s in the anterior tibial epiphysis and an intact appearance of th e graft. The posterior cruciate ligament is intact. A joint effusion is present which commun icates with a loculated Zepeda's cyst posteriorly. At the inferio r margin of the Zepeda's cyst is a hypointense structure measuring rebecca roximately 1.3 x 0.8 x 0.7 cm in size of unclear etiology. There is a complete radial tear of the p osterior horn of the medial meniscus at its posterior root attachmen t best seen on coronal PD image 19 and sagittal PD image 17. The l ateral meniscus is intact. The lateral articular cartilage, medial articular cartilage and patellofemoral cartilage appear grossly intact. There is mild thinning of the medial femoral condyle. Small osteophytes arise at the medial and lateral margins of the emmanuelle int. The popliteus tendon, fibular collateral ligament, biceps femoris tendon and iliotibial band are intact. T he MCL is intact. Adjacent to the anterior portion of the MCL are smal l fragments of what appears to be bone which may be secondary to nikia or injury. Marrow signal intensity is within normal limits. The muscles surrounding the knee are of normal signal intensity. Impression: 1. Complete radial tear of the posterior horn of the medial meniscus at its root attachment. 2. Joint effusion and loculated Zepeda's cyst. 3. Low signal intensity body near the po sterior inferior aspect of the Zepeda's cyst, possibly within or jus t adjacent. This is of unclear etiology but may represent hydro xyapatite. Plain films can be obtained for correlation. 4. Intact ACL graft reconstruction. 5. Osteophytes compatible with early ost eoarthritis. There is thinning of the articular cartilage in t he medial femoral condyle. Addendum Begins Also noted and not mentioned in the impr ession above are apparent ossifications deep to the MCL which may be sequelae of prior injury of the MCL, artifactual, or bodies withi n the medial gutter of the joint. Plain films would be helpful in f urther evaluation. Addendum Ends Procedure Note 12/17/2013 MR EXTREMITY KNEE WO CONTRAST 12/17/2013 1:39 PM Signs and Symptoms/Comments: Left knee pain, popping. Comparison: None Technique: Routine MR sequences were performed of otf he left knee using a head coil secondary to the patient's size. Findings: The extensor mechanism appears intact. T he patient is status post ACL graft reconstruction with multiple screw s in the anterior tibial epiphysis and an intact appearance of th e graft. The posterior cruciate ligament is intact. A joint effusion is present which commun icates with a loculated Zepeda's cyst posteriorly. At the inferio r margin of the Zepeda's cyst is a hypointense structure measuring rebecca roximately 1.3 x 0.8 x 0.7 cm in size of unclear etiology. There is a complete radial tear of the p osterior horn of the medial meniscus at its posterior root attachmen t best seen on coronal PD image 19 and sagittal PD image 17. The l ateral meniscus is intact. The lateral articular cartilage, medial articular cartilage and patellofemoral cartilage appear grossly intact. There is mild thinning of the medial femoral condyle. Small osteophytes arise at the medial and lateral margins of the emmanuelle int. The popliteus tendon, fibular collateral ligament, biceps femoris tendon and iliotibial band are intact. T he MCL is intact. Adjacent to the anterior portion of the MCL are smal l fragments of what appears to be bone which may be secondary to nikia or injury. Marrow signal intensity is within normal limits. The muscles surrounding the knee are of normal signal intensity. Impression: 1. Complete radial tear of the posterior horn of the medial meniscus at its root attachment. 2. Joint effusion and loculated Zepeda's cyst. 3. Low signal intensity body near the po sterior inferior aspect of the Zepeda's cyst, possibly within or jus t adjacent. This is of unclear etiology but may represent hydro xyapatite. Plain films can be obtained for correlation. 4. Intact ACL graft reconstruction. 5. Osteophytes compatible with early ost eoarthritis. There is thinning of the articular cartilage in t he medial femoral condyle. Addendum Begins Also noted and not mentioned in the impr ession above are apparent ossifications deep to the MCL which may be sequelae of prior injury of the MCL, artifactual, or bodies withi n the medial gutter of the joint. Plain films would be helpful in f urther evaluation. Addendum Ends Performing Organization Address City/State/ZIP Code Phon e Number [facility] MR ROOM 1 [facility] MR FEMALE PELVIS W/WO CONTRAST (11/06/2007 15:56 EDT) Anatomical Region Laterality Modality Other Specimen Narrative [facility] - 11/06/2008 14 :31 EDT bilateral adrenal mass, cystic To MR FEMALE PELVIS WWO/CONTRAST ??Oct 242007 3:56:00 PM Clinical history: bilateral adnexal mass es, cystic Comparison: None made available Technique: ??T1 axial, T2 axial, T2 sagi ttal, T2 coronal, and fat-suppressed T2 axial images were obta ined through the pelvis. This was followed by a T1-weighted fat-suppre ssed post gadolinium images in 3 planes. Due to patient's obese body habitus, and open MRI was used. Images are somewhat degraded due t o patient body habitus but remain of diagnostic quality Findings: The uterus is retroverted, jd suring approximately 10 cm in length, 6 cm AP and 8 cm transverse. The re is no significant thickening of the junctional zone at 9 m m. There are no subendometrial cysts and there is normal signal of the myometrium without findings to suggest fibroid peterson ge. The cervix is within normal limits, with a few small nabothia n cysts noted. The endometrium measures 12 mm in thickness and shows an arcuate morphology. There is no sign of focal en dometrial abnormality. There is a 8 cm left adnexal cyst which contains at its inferior aspect a 2.5 cm enhancing nodule. There are 3 right adnexal cysts, largest superior measuring approximately 9 cm AP x 8 cm transverse x 9 cm craniocaudad. Inferior to this is a 3 cm cyst and more inferior ly, adjacent to the urinary bladder is a 3 x 3.5 cm cyst. These demo nstrate no significant complexity. There is no ascites. The marrow signal i s within normal limits. The urinary bladder and urethra are within n ormal limits. There is no pelvic adenopathy. Impression: 1. Uterus without significant finding. 2. Simple right adnexal cysts, largest 9 cm in maximal diameter. 3. Complex left ovarian cyst containing a soft tissue nodule, and therefore concerning for neoplasm, for i nstance borderline epithelial malignancy. 4. No pelvic ascites or adenopathy. Procedure Note Dangelo Aguirre MD - 11/06/2008 bilateral adrenal mass, cystic To MR FEMALE PELVIS WWO/CONTRAST Nov 06, 2007 3:56:00 PM Clinical history: bilateral adnexal mass es, cystic Comparison: None made available Technique: T1 axial, T2 axial, T2 sagitt al, T2 coronal, and fat-suppressed T2 axial images were obta ined through the pelvis. This was followed by a T1-weighted fat-suppre ssed post gadolinium images in 3 planes. Due to patient's obese body habitus, and open MRI was used. Images are somewhat degraded due t o patient body habitus but remain of diagnostic quality Findings: The uterus is retroverted, jd suring approximately 10 cm in length, 6 cm AP and 8 cm transverse. The re is no significant thickening of the junctional zone at 9 m m. There are no subendometrial cysts and there is normal signal of the myometrium without findings to suggest fibroid peterson ge. The cervix is within normal limits, with a few small nabothia n cysts noted. The endometrium measures 12 mm in thickness and shows an arcuate morphology. There is no sign of focal en dometrial abnormality. There is a 8 cm left adnexal cyst which contains at its inferior aspect a 2.5 cm enhancing nodule. There are 3 right adnexal cysts, largest superior measuring approximately 9 cm AP x 8 cm transverse x 9 cm craniocaudad. Inferior to this is a 3 cm cyst and more inferior ly, adjacent to the urinary bladder is a 3 x 3.5 cm cyst. These demo nstrate no significant complexity. There is no ascites. The marrow signal i s within normal limits. The urinary bladder and urethra are within n ormal limits. There is no pelvic adenopathy. Impression: 1. Uterus without significant finding. 2. Simple right adnexal cysts, largest 9 cm in maximal diameter. 3. Complex left ovarian cyst containing a soft tissue nodule, and therefore concerning for neoplasm, for i nstance borderline epithelial malignancy. 4. No pelvic ascites or adenopathy. Performing Organization Address City/State/ZIP Code Phon e Number [facility] [address] [facility] [address] [facility] [address] [place], [place] [address] documented in this encounter Visit Diagnoses Not on filedocumented in this encounter
--- OUTSIDE RECORDS SUMMARY | 2022-02-25 07:42 | XMS_ITS | Encounter Summary ---
:1970 Author Organization [facility] [place] [address] Care Team Providers Name Role Phone Ela Kurtz MD Primary Care Provider Reason for Visit Reason Comments Established annual was due in 2010 Encounter Details Date Type Department Care Team Description 09/01/2013 Follow-Up Gynecology Oncology at [place], Robert Lizarraga MD Serous cystadenoma, borderline malignanc y, left (Primary Dx); [facility] Complex endometrial hyperpla herminia with atypia; [facility] DR Morbid obesity with BMI of 60.0-69.9, ad ult [facility] [place] [address] [place] [id number] [phone] (Wo rk) Social History Tobacco Use Types Packs/Day Years Used Date Never Smoker Smokeless Tobacco: Never Used Alcohol Use Standard Drinks/Week Comments No 0 (1 standard drink = 0.6 oz pure alcoho l) Sex Assigned at Date Recorded Not on file documented as of this encounter Last Filed Vital Signs Vital Sign Reading Time Taken Comments Blood Pressure 140/90 09/01/2013 2:25 PM EDT Pulse - - Temperature - - Respiratory Rate - - Oxygen Saturation - - Inhaled Oxygen Concentration - - Weight 195 kg (429 lb 14.4 oz) 09/01/2013 2:25 PM EDT Height 170.2 cm (5' 7.01) 09/01/2013 2:25 PM EDT Body Mass Index 67.32 09/01/2013 2:25 PM EDT documented in this encounter Progress Notes Piedad Castanon MD - 09/01/2013 2:38 PM EDT Division [place] [address] Follow-up Visit: Patient Active Problem List Diagnosis Code ??? Serous cystadenoma, borderline malignancy 236.2 ??? Morbid obesity with BMI of 60.0-69.9, adult 278.01, V85.44 ??? Complex endometrial hyperplasia with atypia 621.33 Subjective: Betsy Feliciano returns to the office today for a cancer surveillance visit. She presents today at the encouragement of her primary care provider. In 2007 the patient had a D&C for abnormal uterine bleeding and was found to have endometrial complex hyperplasia with atypia and then an ovarian mass was i ncidentally found. In 12/2007, she underwent open radical hysterectomy/BSO with pelvic & para-aortic lymphadenectomy for left ovarian serous LMP tumor and endometrial hyperplasia. She has been doingwell since her last visit aside aside from recently having her left knee replaced. She is having regular bowel movements and is eating well. Her appetite and energy level is good. She denies fevers, chills, dysuria, abdominal/pelvic pain, vaginal bleeding, nausea, vomiting or diarrhea. Review of Systems Constitutional: Negative for fever, chills, activity change, appetite change, fatigue and unexpectedweight change. HENT: Negative for hearing loss. Eyes: Negative for visual disturbance. Respiratory: Negative for cough, chest tightness, shortness of breath and wheezing. Cardiovascular: Positive for leg swelling (recent knee surgery on left). Negative for chest pain andpalpitations. Gastrointestinal: Negative for nausea, vomiting, abdominal pain, diarrhea, constipation and abdominal distention. Genitourinary: Negative for dysuria, hematuria, vaginal bleeding, vaginal discharge and pelvic pain. Neurological: Negative for tremors, weakness and headaches. Hematological: Negative for adenopathy. Does not bruise/bleed easily. Objective: Filed Vitals: 09/01/13 1425 BP: 140/90 Height: 170.2 cm (5' 7.01) Weight: 195 kg (429 lb 14.4 oz) Body mass index is 67.32 kg/(m^2). Body surface area is 3.04 meters squared. Physical Exam General: Morbidly obese female, pleasant, in NAD Neck: no cervical lymphadenopathy CV: Regular rate and rhythm, nml s1/s2, no m/g/r Pulm: CTAB, no wheezes or crackles Abdomen: Obesity limits exam, distant bowel sounds present, no tenderness, no distension, no guarding or rebound. Pelvic Exam: External genitalia appears without lesions, much redundant tissue around perineum, vaginal cuff and vagina visualized and is closed without any visible lesions, mucosa appears moist. Bimanual exam: no nodularity at the cuff and no masses palpated; non-tender. Vaginal-rectal exam: anal tone was normal, no masses palpated; vaginal cuff freely mobile. Firm stool in rectum and no rectal bleeding on gross inspection. Extremities: 2+ pitting edema bilaterally Assessment and Plan: Betsy Feliciano is a 43 y.o. 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 It has been 5 yearssince her surgery and she is doing well, without evidence of recurrent cancer. Signs and symptoms ofrecurrent disease reviewed. At this point, the patient does not require yearly follow-up with Licensed Direct Entry Midwife-Oncology for her surveillance and may follow-up with her PCP; however, she is welcome to return if she has any concerns. Additionally, concerns with the patient's obesity and cancer risks were discussed today and the patient was encouraged to lose weight. Bariatric surgery was discussed as one method for achieving that goal. PIEDAD CASTANON MD ASSESSMENT: I saw and evaluated the patient with Dr. Castanon, and I confirmed the history and physical findings as outlined, and I agree with the note as written. Today, I also had a discussion with Betsy about her morbid obesity, whose BMI is: Body mass index is 67.32 kg/(m^2).. I discussed the risks associated with obesity, including the increased risk of endometrial, colon, ovarian, breast, and other cancers, and this includes an increased risk of recurrence of treated cancers as well. I reviewed the goals of weight management- as an effort to mitigate those risks. I also provided the patient with copies of information pamphlets, from the [employer] website (https://www.sgo.org/obesity/) includin. A Patient???s Guide to Losing Weight to Reduce Your Risk of Endometrial Cancer 2. Obesity and Endometrial Cancer: For family physicians and patients. I also briefly reviewed the option of bariatric surgery (gastric bypass), as a mechanism in patientswho are severely overweight who failed diet/exercise management strategies. documented in this encounter Plan of Treatment Not on filedocumented as of this encounter Visit Diagnoses Diagnosis Serous cystadenoma, borderline malignanc y, left - Primary Complex endometrial hyperplasia with aty maureen Endometrial hyperplasia with atypia Morbid obesity with BMI of 60.0-69.9, ad ult Morbid obesity documented in this encounter Care Teams Hearing Healthcare Practitioner Relationship Specialty Start Date End Date Ela Kurtz MD PCP - General 04/17/10 03/17/18 [address] [place] [address] documented as of this encounter
--- OUTSIDE RECORDS SUMMARY | 2022-02-25 07:42 | XMS_ITS | Encounter Summary ---
:1970 Author Organization [place] [address] Care Team Providers Name Role Phone Ling Roque APRN Primary Care Provider Encounter Details Date Type Department Care Team Description 12/08/2018 Telephone General Surgery at [facility] [place] [place] [id number] Social History Tobacco Use Types Packs/Day Years Used Date Never Smoker Smokeless Tobacco: Never Used Alcohol Use Standard Drinks/Week Comments No 0 (1 standard drink = 0.6 oz pure alcoho l) Sex Assigned at Date Recorded Not on file documented as of this encounter Miscellaneous Notes Telephone Encounter - Michelle Haas - 12/08/2018 3:29 PM EDT Called and left a message on Betsy's home number requesting she contact us to reschedule her appointment with Dr. Aguilar scheduled for 12/11 at 4:00p as Dr. Aguilar will no longer be available. documented in this encounter Plan of Treatment Not on filedocumented as of this encounter Visit Diagnoses Not on filedocumented in this encounter Care Teams Partnership Marketing Manager Relationship Specialty Start Date End Date Ling Roque APRN PCP - General Family Medicine 03/18/[address] [place] [address] documented as of this encounter
--- NOTE | 2022-02-25 08:15 | DI.RAD_ITS ---
Exam(s) XR TIB/FIB LT EXAM: XR TIB/FIB LT CLINICAL HISTORY: trauma, laceration/pain over anterior mid tibia. TECHNIQUE: 2D digital imaging was performed. Two views. COMPARISON: No exams were available for comparison FINDINGS: BONES: No acute fracture is present. No bony destructive lesion is seen. Degenerative changes at the knee. ACL repair. SOFT TISSUE: Normal. IMPRESSION: Degenerative changes. No acute abnormality. DATA REPOSITORY: RADIATION DOSE DELIVERED:
--- NOTE | 2022-02-25 08:15 | DI.RAD_ITS ---
Exam(s) XR ANKLE LT COMPLETE EXAM: XR ANKLE LT COMPLETE CLINICAL HISTORY: trauma, ankle pain TECHNIQUE: 2D digital imaging was performed. Three views. COMPARISON: CR XR HEEL LT OS [facility] from 08/09/2020 FINDINGS: BONES: No acute fracture is present. No bony destructive lesion is seen. Heel spurs. Degenerative c hanges. JOINTS:The ankle mortise is normally aligned. SOFT TISSUE: Swelling IMPRESSION: No acute abnormality. DATA REPOSITORY: RADIATION DOSE DELIVERED:
--- NOTE | 2022-02-25 08:31 | W.ED.GENAD ---
Discharge Plan Disposition Patient Disposition: HOME Condition: Good Discharge Details Clinical Impression: Contusion of left lower leg, Laceration of left lower leg, Abrasion of anterior left lower leg Primary Care Provider: Ling Roque ED Provider: Zoey Taylor Home Meds and New Rx's Prescriptions: Continued doxycycline hyclate 100 mg capsule 100 mg PO BID Qty: 14 0RF Rx Instructions: Avoid sun exposure. Take with meal. Take 1 pill every 12 hours x 7 days loratadine 10 mg tablet 10 mg PO DAILY PRN (Reason: allergy symptoms) Qty: 90 4RF montelukast 10 mg tablet 10 mg PO QPM PRN (Reason: allergic rhinitis) Qty: 90 4RF acetaminophen [Tylenol Extra Strength] 500 mg Tablet 1,000 mg PO Q6H PRN multivitamin 1 EACH capsule 1 ea PO QAM Discharge Instructions Instructions: Laceration (ED), Contusion in Adults (ED), Abrasion (ED) Additional Instructions: Please return immediately to the emergency department if you develop any new or worsening symptoms, if your condition does not improve as expected, or if you become otherwise concerned. It is extremely important that you call soon as possible to make an appointment to be seen in follow-up for this visit by your primary care doctor. You will need to have your sutures removed in 10 days as we discussed. Medical Decision Making Concern for fracture versus contusion as the tib/fib, possible ankle fracture, other. Exam/history at this time is not consistent with DVT, significant injury proximal to the left tib-fib or of the left knee, nonmechanical etiology of fall, other acute emergent life/limb threatening process. Plan for x-rays, laceration repair. X-rays negative. Laceration irrigated extensively, laceration is very superficial, not gaping. Laceration repaired, please see procedure note. I had a discussion with Patient regarding return to emergency department precautions, home care, and importance of outpatient follow-up. Pt verbalizes understanding of the plan and is amenable. Patient discharged to home with clear plan for outpatient follow-up. All questions were answered. Disposition decision was made weighing the risks and benefits of hospitalization versus outpatient treatment, the risk for further decompensation, and the patient's wishes. Medical Records Medical records reviewed: Yes I reviewed the patient's medical records. Imaging Data Radiologic Study: Attestation: I personally reviewed and interpreted this imaging study as follows: Radiologist's impression: EXAM:? XR ANKLE LT COMPLETE CLINICAL HISTORY:? trauma, ankle pain TECHNIQUE:? 2D digital imaging was performed.? Three views. COMPARISON:? CR XR HEEL LT OS CALCIS from 08/09/2020 FINDINGS: BONES: No acute fracture is present. No bony destructive lesion is seen.? Heel spurs.? Degenerative changes.? JOINTS:The ankle mortise is normally aligned. SOFT TISSUE: Swelling IMPRESSION: No acute abnormality. EXAM:? XR TIB/FIB LT CLINICAL HISTORY: ? trauma, laceration/pain over anterior mid tibia.? TECHNIQUE:? 2D digital imaging was performed.? Two views. COMPARISON:? No exams were available for comparison FINDINGS: BONES: No acute fracture is present. No bony destructive lesion is seen.? Degenerative changes at the knee.? ACL repair. SOFT TISSUE: Normal. IMPRESSION: Degenerative changes.? No acute abnormality. HPI General Mode of arrival: ambulatory. Date/Time Provider Initiated Documentation: 02/25/22 07:50. Limitations to Documentation: no limitations. Information obtained by: patient, RN notes reviewed and old records reviewed. HPI Narrative: Betsy Feliciano is a 52-year-old woman with history of degenerative arthritis presenting to the emergency department with left lower leg injury. Patient reports that this morning just prior to arrival she slipped and fell in the shower, injuring her left lower leg. Patient reports that she had stepped onto the wet shower floor with her right foot while getting into the shower, right foot slipped on wet surface and went out from under her, trapping left lower leg between glass doors. Patient reports that there was no broken glass. She states that she did not hit her head, did not lose consciousness. She denies any pain other than to the left lower leg, fever, cough, shortness of breath, vomiting, diarrhea, rash, numbness, weakness. She states that she was previously in her usual state of health. Related Data Home Medications Medication Instructions Recorded Confirmed multivitamin 1 ea PO QAM 07/29/12 02/25/22 acetaminophen 500 mg tablet 1,000 mg PO Q6H PRN 04/10/18 02/25/22 (Tylenol Extra Strength) doxycycline hyclate 100 mg capsule 100 mg PO BID #14 caps 09/28/20 02/25/22 loratadine 10 mg tablet 10 mg PO DAILY PRN allergy 09/28/20 02/25/22 symptoms #90 tabs montelukast 10 mg tablet 10 mg PO QPM PRN allergic rhinitis 09/28/20 02/25/22 #90 tabs Previous Rx's Medication Instructions Recorded doxycycline hyclate 100 mg capsule 100 mg PO BID #14 caps 09/28/20 loratadine 10 mg tablet 10 mg PO DAILY PRN allergy 09/28/20 symptoms #90 tabs montelukast 10 mg tablet 10 mg PO QPM PRN allergic rhinitis 09/28/20 #90 tabs Allergies Allergy/AdvReac Type Severity Reaction Status Date / Time Penicillins Allergy Severe swelling, Verified 02/25/22 07:42 severe hives nickel Allergy Intermediate unhealing Verified 02/25/22 07:42 gums adhesive Allergy Mild bandaids Verified 02/25/22 07:42 cause rash General Stated Complaint: Laceration ANGIE: 4 Review of Systems Narrative: Constitutional: denies fevers Eyes: denies eye pain ENT: denies ear pain, dental pain, sore throat Cardiovascular: denies chest pain Respiratory: denies SOB, cough GI: denies abdominal pain, vomiting, diarrhea : denies flank pain MSK: denies back pain, neck pain, arthralgias, reports pain mid lower leg Skin: denies rash, reports skin wounds to left lower leg Neuro: denies headaches, numbness, weakness PFSH All Active Problems (Updated 02/25/22 @ 11:20 by Zoey Taylor MD) Contusion of left lower leg (Acute) Laceration of left lower leg (Acute) Abrasion of anterior left lower leg (Acute) Contusion of left heel (Acute) Leg pain, left (Acute) Colicky RUQ abdominal pain (Acute) 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, 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 Morbid obesity (Acute 05/20/13) Knee pain (Acute 05/20/13) s/p left knee arthroscopy, [facility] Elevated fasting blood sugar (Acute 05/24/14) Degenerative arthritis (Acute 12/09/13) Surgical History Abdominal hysterectomy (~2007) stage 1 borderline serous tumor ovary complex endometrial hyperplasia with atypia ([facility]) Bilateral salpingectomy with oophorectomy (~2007) S/P cholecystectomy 11/16/18 - [facility] (with liver biopsy - mild steatosis and no fibrosis) Family History Mother Diabetes TYPE 2 Essential hypertension ASCVD (arteriosclerotic cardiovascular disease) S/P CABG Heart disease Obesity Father Diabetes TYPE 2 Essential hypertension Heart disease Obesity Grandfather Personal history of malignant neoplasm Lung Grandfather Essential hypertension Personal history of malignant neoplasm Lung Heart disease Grandmother Personal history of malignant neoplasm Lung Grandmother No problems noted. Daughter Asthma Daughter Asthma Social History Smoking/Tobacco Use Status: Never Smoking risk assessment performed?: Yes Alcohol Intake: current Alcohol Intake frequency: holidays/special occasions only Alcohol type: wine Drug use: Never Substance use type: does not use Do you feel safe at home: Yes Do you feel safe in your relationship?: Yes Exam Narrative Exam Narrative: Constitutional: well and [id number], pleasant, conversing normally HENT: head atraumatic/normocephalic/normal inspection, mucous membranes moist Eyes: conjunctiva normal, sclera normal, pupils 3mm b/l Neck: no stridor, normal ROM, trachea midline Resp: normal work of breathing, speaking in full sentences Cardio: normal rate, normal rhythm Skin: warm, dry, normal color, no rash Neuro: alert, not altered, grossly non-focal, normal tone Ext: no edema, linear abrasion proximal aspect of left lower leg, superficial linear laceration distal aspect of lower leg with surrounding early ecchymosis and tenderness to palpation, no deformity. Mild tenderness to palpation of the medial aspect of the left ankle. Full painless range of motion of the left ankle. Foot is nontender to palpation, normal range of motion of the toes. Foot is warm and well-perfused, DP pulse intact. Full painless range of motion of the knee, left knee is nontender to palpation. Psych: normal mood, normal affect, normal behavior Course Vital Signs Vital signs: Vital Signs Temperature 36.6 C 02/25/22 07:38 Pulse 91 H 02/25/22 07:38 Respiratory Rate 18 02/25/22 07:38 Blood Pressure 174/92 H 02/25/22 07:38 Pulse Oximetry 96 02/25/22 07:38 Temperature 36.6 C 02/25/22 07:38 Temperature Source Tympanic 02/25/22 07:38 Pulse 91 H 02/25/22 07:38 Respiratory Rate 18 02/25/22 07:38 Respiratory Effort Non-Labored 02/25/22 07:45 Blood Pressure 174/92 H 02/25/22 07:38 Blood Pressure Position Sitting 02/25/22 07:38 Pulse Oximetry 96 02/25/22 07:38 Oxygen Delivery Method Room Air 02/25/22 07:38 Oxygen Flow Rate 0 02/25/22 07:38 Pain Level 8 02/25/22 07:45 Procedures Laceration Laceration 1: Site: lower extremity Side (If applicable): left Size (cm): 8 Description: linear Depth: simple, single layer Local Anesthetic: Lidocaine 1% Amount of anesthesia used (mL): 10 Pre-repair: wound explored, irrigated extensively and deep structures intact Skin layer closed with: other Size (cm): 3-0 Number of sutures: 8 Technique: simple, interrupted
[2022-02-25] MEDS: oxyCODONE 5 mg/Acetaminophen 325 mg TAB 1 TAB PO (10:03)
[2022-02-25] MEDS: Bacitracin 1 PACKET TP (11:29)
[2022-02-25] MEDS: Lidocaine 1% Multi-Dose 20 ML VIAL (11:30)
== END 2022-02-25 11:28 | disposition home or self-care (01) ==
PROVIDERS: Emergency Provider Student in an Organized Health Care Education/Training Program
DX: S81.812A Laceration without foreign body, left lower leg, initial encounter (principal); Z23 Encounter for immunization; V18.2XXA Unspecified pedal cyclist injured in noncollision transport accident in nontraffic accident, initial encounter
CPT/HCPCS: 12004; 90471; 99284; 73590; 73610; J3490

== ENCOUNTER 2022-03-01 20:30 | Outpatient (REF) | payer BC, SELFPAY | END 2022-03-01 20:31 | disposition home or self-care (01) | LOC: LBN 20:30 | PROVIDERS: Visit Provider Nurse Practitioner Family | DX: S81.812A Laceration without foreign body, left lower leg, initial encounter (principal); X58.XXXA Exposure to other specified factors, initial encounter | CPT/HCPCS: 87070; 87205 ==

== ENCOUNTER 2023-02-14 21:24 | Outpatient (REF) | payer BC, SELFPAY ==
[2023-02-14 21:29] LABS: HGB 14.4 g/dL (11.2-15.7); MCH 29.4 pg (27.0-33.0); MCV 92 fL (80-95); MPV 11.9 fL (8.0-11.0); Platelet Count 239 10^3/uL (130-400); RBC 4.89 10^6/uL (3.93-5.22); RDW 13.1 % (11.7-14.6); RDW-SD 44.2 fL; WBC 12.67 10^3/uL (4.4-10.8)
[2023-02-14 21:44] LABS: ALT 31 U/L (14-59); AST 18 U/L (15-37); Albumin 3.4 g/dL (3.4-5.0); Alkaline Phosphatase 80 U/L (46-116); Anion Gap 9.8 mmol/L (3-11); BUN 14 mg/dL (7-18); Bilirubin, Total 0.4 mg/dL (0.2-1.0); CO2 26.2 mmol/L (21.0-32.0); CREATININE 0.7 mg/dL (0.55-1.02); Calcium 9.3 mg/dL (8.5-10.1); Calculated LDL 79 mg/dL (<100); Chloride 101 mmol/L (98-107); Cholesterol 155 mg/dL (<200); Glucose 189 mg/dL (74-106); HDL Cholesterol 43 mg/dL (40-60); Sodium 137 mmol/L (136-145); Total Protein 7.3 g/dL (6.4-8.2); Triglyceride 165 mg/dL (<150)
== END 2023-02-14 21:25 | disposition home or self-care (01) ==
LOC: LBN 21:24
PROVIDERS: PCP Nurse Practitioner Family; Visit Provider Family Medicine
DX: E11.65 Type 2 diabetes mellitus with hyperglycemia (principal); L03.032 Cellulitis of left toe
CPT/HCPCS: 80053; 80061; 85027

== ENCOUNTER 2023-02-22 13:57 | Outpatient (REF) | payer BC, SELFPAY ==
[2023-02-22 16:30] LABS: COMMENT (LAB VIEW ONLY) 105.96 mg/dL; Microalb ug/mg Crea 5.2 ug/mg Cr
== END 2023-02-22 13:58 | disposition home or self-care (01) ==
LOC: LBN 13:57
PROVIDERS: PCP Nurse Practitioner Family; Visit Provider Nurse Practitioner Family
DX: E11.9 Type 2 diabetes mellitus without complications (principal)
CPT/HCPCS: 82043; 82570

== ENCOUNTER → 2023-03-04 00:52 | Outpatient (CLI) | payer BC, SELFPAY ==
--- NOTE | 2023-03-04 07:45 | DI.MAMMO_ITS ---
Exam(s) MAMMO SCREENING EXAM: MAMMO SCREENING CLINICAL HISTORY: screening,Z12.39 TECHNIQUE: Mammograms were interpreted according to the usual protocol including computer analysis w xkoto CAD system, tomosynthesis and C-view imaging. COMPARISON: 2014 and 2015 FINDINGS: The breasts are composed of mainly fatty density , Breast Density category A. No suspicious masses or suspicious microcalcifications are seen. No skin thickening or abnormal axillary lymph nodes are seen. There has been no significant change from prior exams. IMPRESSION: BI-RADS Category 1, Negative mammogram Yearly screening mammography is recommended. Breast Density - Category A, fatty density. A negative radiographic report should not delay biopsy if a dominant or clinically suspicious mass is present. Up to ten percent of cancers are not identified on mammography. A negative report may reinforce clinical impression. Adenosis and dense breasts may obscure an underlying neoplasm. False positive reports average 6 to 10%. Patient will receive a letter notifying them of these results.
== END ==
PROVIDERS: PCP Nurse Practitioner Family; Visit Provider Nurse Practitioner Family
DX: Z12.31 Encounter for screening mammogram for malignant neoplasm of breast (principal)
CPT/HCPCS: 77063; 77067

== ENCOUNTER 2023-04-19 15:46 | Emergency (ER) | payer BC, SELFPAY ==
[2023-04-19] VITALS (28 sets, daily range): BP systolic 120–167; BP diastolic 59–90; PULSE 69–85; RESP 16–18; TEMP 36.7–37.1; O2SAT 95–100
--- NOTE | 2023-04-19 18:17 | W.ED.GENAD ---
Discharge Plan Disposition Patient Disposition: Home Condition: Improving Discharge Details Chief Complaint: Abd Prob Clinical Impression: Abdominal pain Primary Care Provider: Alex Vazquez ED Provider: Huey Correia Home Meds and New Rx's Prescriptions: No Action Mounjaro 5 mg/0.5 mL pen injector 5 mg subcut QWEEK MDD 5 mg 28 Days Qty: 2 2RF Rx Instructions: Inject 5.0 mg subcutaneously once weekly insulin degludec [Tresiba FlexTouch U-100] 100 unit/mL (3 mL) insulin pen 11 unit subcut DAILY Rx Instructions: Inject 10 units subcutaneously once daily. Mounjaro 2.5 mg/0.5 mL pen injector 5 mg subcut QWEEK Rx Instructions: Inject 2.5 mg subcutaneously once weekly. doxycycline hyclate 100 mg capsule 100 mg PO BID Qty: 14 0RF Rx Instructions: Avoid sun exposure. Take with meal. Take 1 pill every 12 hours x 7 days naproxen sodium [Aleve] 220 mg capsule 220 mg PO BID (DME) blood-glucose meter [OneTouch Ultra2 Meter] Misc See Rx Instructions .MEDSUPPLY Qty: 1 4RF Rx Instructions: Check blood sugar twice a day (DME) OneTouch Verio test strips Strip See Rx Instructions .MEDSUPPLY Qty: 100 4RF Rx Instructions: Check blood sugar twice a day (DME) lancets Misc See Rx Instructions .MEDSUPPLY Qty: 100 4RF Rx Instructions: Check blood sugar twicea day (DME) FreeStyle Marilee 2 [place] Misc See Rx Instructions .Route Qty: 1 0RF Rx Instructions: As directed (DME) FreeStyle Marilee 2 Sensor Kit See Rx Instructions .Route Qty: 1 12RF Rx Instructions: As directed Mounjaro 5 mg/0.5 mL pen injector 5 mg subcut QWEEK 28 Days Qty: 2 12RF Rx Instructions: Inject 5 mg subcutaneously once weekly. acetaminophen [Tylenol Extra Strength] 500 mg Tablet 1,000 mg PO Q6H PRN (DME) pen needle, diabetic [Easy Comfort Pen Helotes] 31 gauge x 3/16 needle See Rx Instructions .Route Qty: 100 6RF Rx Instructions: For once daily injection (DME) OneTouch Ultra Test Strip See Rx Instructions .Route Qty: 100 6RF Rx Instructions: Test three times daily as directed tirzepatide 7.5 mg/0.5 mL pen injector 7.5 mg subcut QWEEK MDD 7.5 mg Qty: 2 4RF Rx Instructions: Inject 7.5 mg subcutaneously once weekly montelukast 10 mg tablet See Rx Instructions .ROUTE .COMPLEX Qty: 90 4RF Dose Instruction: TAKE ONE TABLET BY MOUTH EVERY EVENING NEEDED FOR ALLERGIC RHINITIS Rx Instructions: TAKE ONE TABLET BY MOUTH EVERY EVENING NEEDED FOR ALLERGIC RHINITIS loratadine 10 mg tablet See Rx Instructions .ROUTE .COMPLEX Qty: 90 4RF Dose Instruction: TAKE ONE TABLET BY MOUTH EVERY DAY NEEDED FOR ALLERGY SYMPTOMS Rx Instructions: TAKE ONE TABLET BY MOUTH EVERY DAY NEEDED FOR ALLERGY SYMPTOMS multivitamin 1 EACH capsule 1 ea PO QAM Discharge Instructions Instructions: Abdominal Pain (ED) Additional Instructions: Please follow-up with your primary care physician. Please return to the emergency department for any worsening symptoms Medical Decision Making 53-year-old female history of diabetes, obesity, started on tirzepatide in January presents with abdominal discomfort nausea, and resolving loose stool over the past 2 days. Patient is afebrile nontoxic nonperitoneal. The predominant side effects of tirzepatide are abdominal pain decreased appetite nausea vomiting and diarrhea, consider medication reaction versus viral gastro enteritis versus foodborne illness lower suspicion for pancreatitis appendicitis or bowel obstruction. Low suspicion for urinary tract infection. Lower suspicion for DKA given history physical and vital signs. Will obtain screening labs fluids antiemetics GI cocktail close reassessment of symptoms 19: 37 patient feeling much better after fluids and meds. Home care instructions and return precautions given HPI General Date/Time Provider Initiated Documentation: 04/19/23 16:04. HPI Narrative: 53-year-old female history of obesity, diabetes started on tirzepatide in January presents with generalized abdominal discomfort nausea and loose stool over the last 2 days, loose stool has resolved, no vomiting. Patient has history of cholecystectomy oophorectomy and hysterectomy. Related Data Home Medications Medication Instructions Recorded Confirmed multivitamin 1 ea PO QAM 07/29/12 04/18/23 acetaminophen 500 mg tablet 1,000 mg PO Q6H PRN 04/10/18 04/18/23 (Tylenol Extra Strength) naproxen sodium 220 mg capsule 220 mg PO BID 03/09/22 04/18/23 (Aleve) Easy Comfort Pen Helotes 31 gauge #100 ea 02/14/23 04/18/23 x 3/16 (pen needle, diabetic) blood sugar diagnostic (OneTouch #100 ea 02/14/23 04/18/23 Verio test strips) blood-glucose meter (OneTouch #1 ea 02/14/23 04/18/23 Ultra2 Meter) lancets #100 ea 02/14/23 04/18/23 blood sugar diagnostic (OneTouch #100 ea 02/15/23 04/18/23 Ultra Test strips) tirzepatide 5 mg/0.5 mL 5 mg (0.5 mL) subcut QWEEK 28 days 02/28/23 04/18/23 subcutaneous pen injector #2 mL (Mounjaro) doxycycline hyclate 100 mg capsule 100 mg PO BID #14 caps 03/13/23 04/18/23 insulin degludec 100 unit/mL (3 11 unit subcut DAILY 03/13/23 04/18/23 mL) subcutaneous pen (Tresiba FlexTouch U-100 insulin) tirzepatide 2.5 mg/0.5 mL 5 mg subcut QWEEK 03/13/23 04/18/23 subcutaneous pen injector (Mounjaro) flash glucose scanning reader #1 ea 03/21/23 04/18/23 (FreeStyle Marilee 2 [place]) flash glucose sensor (FreeStyle #1 ea 03/21/23 04/18/23 Marilee 2 Sensor kit) tirzepatide 7.5 mg/0.5 mL 7.5 mg (0.5 mL) subcut QWEEK #2 mL 03/26/23 04/18/23 subcutaneous pen injector loratadine 10 mg tablet See Rx Instructions .Route 04/18/23 .COMPLEX #90 tabs montelukast 10 mg tablet See Rx Instructions .Route 04/18/23 .COMPLEX #90 tabs tirzepatide 5 mg/0.5 mL 5 mg (0.5 mL) subcut QWEEK 28 days 04/18/23 04/18/23 subcutaneous pen injector #2 mL (Mounjaro) Previous Rx's Medication Instructions Recorded Easy Comfort Pen [place] 31 gauge #100 ea 02/14/23 x 3/16 (pen needle, diabetic) blood sugar diagnostic (OneTouch #100 ea 02/14/23 Verio test strips) blood-glucose meter (OneTouch #1 ea 02/14/23 Ultra2 Meter) lancets #100 ea 02/14/23 blood sugar diagnostic (OneTouch #100 ea 02/15/23 Ultra Test strips) tirzepatide 5 mg/0.5 mL 5 mg (0.5 mL) subcut QWEEK 28 days 02/28/23 subcutaneous pen injector #2 mL (Mounjaro) doxycycline hyclate 100 mg capsule 100 mg PO BID #14 caps 03/13/23 flash glucose scanning reader #1 ea 03/21/23 (FreeStyle Marilee 2 [place]) flash glucose sensor (FreeStyle #1 ea 03/21/23 Marilee 2 Sensor kit) tirzepatide 7.5 mg/0.5 mL 7.5 mg (0.5 mL) subcut QWEEK #2 mL 03/26/23 subcutaneous pen injector loratadine 10 mg tablet See Rx Instructions .Route 04/18/23 .COMPLEX #90 tabs montelukast 10 mg tablet See Rx Instructions .Route 04/18/23 .COMPLEX #90 tabs tirzepatide 5 mg/0.5 mL 5 mg (0.5 mL) subcut QWEEK 28 days 04/18/23 subcutaneous pen injector #2 mL (Mounjaro) Allergies Allergy/AdvReac Type Severity Reaction Status Date / Time Penicillins Allergy Severe swelling, Verified 03/13/23 09:58 severe hives nickel Allergy Intermediate unhealing Verified 03/13/23 09:58 gums adhesive Allergy Mild bandaids Verified 03/13/23 09:58 cause rash General Stated Complaint: Abd Prob ANGIE: 3 Review of Systems Narrative: Review of Systems Constitutional: negative Eyes: negative ENT: negative Cardiovascular: negative Respiratory: negative Gastrointestinal: Abdominal pain, nausea, diarrhea : negative Musculoskeletal: negative Skin: negative Neurologic: negative Psych: negative PFSH All Active Problems (Updated 04/19/23 @ 19:38 by Huey Correia MD) Abdominal pain (Acute) BMI 50.0-59.9, adult (Acute) Poorly controlled diabetes mellitus (Acute) Screening, ischemic heart disease (Acute) Leg pain, left (Acute) Serous cystadenoma of ovary (Acute 05/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) [facility] [place], 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 Morbid obesity (Acute 05/20/13) Knee pain (Acute 05/20/13) s/p left knee arthroscopy, [facility] Degenerative arthritis (Acute 12/09/13) Medical History (Updated 04/19/23 @ 19:38 by Huey Correia MD) Newly diagnosed diabetes Paronychia of toenail of left foot Wound disruption Contusion of left heel Colicky RUQ abdominal pain Elevated fasting blood sugar (05/24/14) Surgical History S/P [place]olecystectomy 11/16/18 [place] [facility] [place]with liver biopsy - mild steatosis and no fibrosis) Abdominal hysterectomy (~2007) stage 1 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 Daughter Asthma Daughter Asthma Social History Smoking/Tobacco Use Status: Never Smoking risk assessment performed?: Yes Alcohol Intake: current Alcohol Intake frequency: holidays/special occasions only Alcohol type: wine Drug use: Never Substance use type: does not use Housing: house Do you feel safe at home: Yes Do you feel safe in your relationship?: Yes Exam Narrative Exam Narrative: Physical Examination General: alert, awake, cooperative, resting comfortably, no acute distress HEENT: normocephalic, atraumatic; PERRL, EOM intact, conjunctiva normal; no nasal discharge; moist mucous membranes, oral and pharyngeal mucosa normal, tolerating secretions Neck: supple, trachea midline; full ROM Chest: normal to inspection Respiratory: normal respiratory effort, speaking in full sentences, clear to auscultation, no wheezing, rales or rhonchi Cardiac: regular rate, regular rhythm, S1S2 intact, no murmurs rubs or gallops GI: abdomen soft, non-tender, non-distended; no palpable mass or hepatosplenomegaly Skin: no lesions, rashes or trauma appreciated Neuro: AAOx3, normal speech, moving all extremities Psych: Appropriate mood and affect Course Vital Signs Vital signs: Vital Signs Temperature 37.1 C 04/19/23 15:57 Pulse 84 04/19/23 15:57 Respiratory Rate 18 04/19/23 15:57 Blood Pressure 167/90 H 04/19/23 15:57 Pulse Oximetry 97 04/19/23 15:57 Temperature 36.8 C 04/19/23 17:24 Temperature Source Oral 04/19/23 17:24 Pulse 75 04/19/23 17:24 Respiratory Rate 18 04/19/23 17:24 Respiratory Effort Normal, Non-Labored 04/19/23 16:55 Blood Pressure 144/67 H 04/19/23 17:24 Blood Pressure Position Sitting 04/19/23 15:57 Pulse Oximetry 97 04/19/23 17:24 Oxygen Delivery Method Room Air 04/19/23 17:24 Oxygen Flow Rate 0 04/19/23 15:57 Pain Level 1 04/19/23 17:24
[2023-04-19] MEDS: Ondansetron 4 MG/2 ML VIAL IVP (18:18)
[2023-04-19] MEDS: Famotidine 20 MG/2 ML VIAL IVP (18:19)
[2023-04-19] MEDS: Normal Saline 1,000 ML 1000 ML IV (18:21)
[2023-04-19 18:33] LABS: Abs Immature Grans 0.05 10^3/uL (0.0-0.06); Absolute Basophil Count 0.02 10^3/uL (0.0-0.2); Absolute Eosinophil Count 0.22 10^3/uL (0.0-0.7); Absolute Lymphocyte Count 3.05 10^3/uL (1.2-3.4); Absolute Monocyte Count 0.96 10^3/uL (0.1-0.8); Absolute Neutrophil Count 8.15 10^3/uL (1.2-6.7); Basophils % 0.2; Eosinophils % 1.8; HCT 46.8 % (36.0-46.0); HGB 15.4 g/dL (11.2-15.7); Immature Grans % 0.4; Lymphocytes % 24.5; MCH 29.8 pg (27.0-33.0); MCHC 32.9 % (32.0-36.0); MCV 91 fL (80-95); MPV 11.3 fL (8.0-11.0); Monocytes % 7.7; Neutrophils % 65.4; Platelet Count 259 10^3/uL (130-400); RBC 5.16 10^6/uL (3.93-5.22); RDW 12.8 % (11.7-14.6); RDW-SD 42.5 fL; WBC 12.46 10^3/uL (4.4-10.8)
[2023-04-19 18:42] LABS: ALT 25 U/L (14-59); AST 13 U/L (15-37); Albumin 3.5 g/dL (3.4-5.0); Alkaline Phosphatase 67 U/L (46-116); Anion Gap 5.4 mmol/L (3-11); BUN 15 mg/dL (7-18); Bilirubin, Total 0.3 mg/dL (0.2-1.0); CO2 28.6 mmol/L (21.0-32.0); CREATININE 0.8 mg/dL (0.55-1.02); Calcium 9.2 mg/dL (8.5-10.1); Chloride 105 mmol/L (98-107); Estimated GFR 88.05 (mL/min/1.73m2); Glucose 109 mg/dL (74-106); Lipase 37 U/L (16-77); Magnesium 1.9 mg/dL (1.8-2.4); Potassium 3.6 mmol/L (3.5-5.1); Sodium 139 mmol/L (136-145); Total Protein 7.9 g/dL (6.4-8.2)
== END 2023-04-19 19:49 | disposition home or self-care (01) ==
PROVIDERS: Emergency Provider Emergency Medicine; PCP Nurse Practitioner Family
DX: R10.9 Unspecified abdominal pain (principal); E11.9 Type 2 diabetes mellitus without complications; E66.9 Obesity, unspecified
CPT/HCPCS: 80053; 83690; 96361; 96374; 96375; 99284; 81003; 83735; 85025; J2405

== ENCOUNTER 2023-05-16 01:53 | Outpatient (CLI) | payer BC, SELFPAY ==
[2023-05-20 10:07] LABS: ALT 21 U/L (7-45); ActiTest Grade A0; ActiTest Interpretation no activity; ActiTest Score 0.07; Alpha-2-Macroglobulin 238 mg/dL (100 - 280); Apoliprotein A1 120 mg/dL (>=140); Bilirubin, Total 0.3 mg/dL (0.0 - 1.2); FibroTest Interpretation no fibrosis; FibroTest Score 0.14; FibroTest Stage F0; GGT 12 U/L (5 - 36); Haptoglobin 188 mg/dL (30 - 200)
== END 2023-05-16 01:54 | disposition home or self-care (01) ==
LOC: LBO 01:53
PROVIDERS: PCP Nurse Practitioner Family; Visit Provider Nurse Practitioner Family
DX: E66.01 Morbid (severe) obesity due to excess calories (principal); R10.11 Right upper quadrant pain
CPT/HCPCS: 36415; 81596

== ENCOUNTER 2023-08-29 18:28 | Outpatient (REF) | payer BC, SELFPAY | END 2023-08-29 18:29 | disposition home or self-care (01) | LOC: LBN 18:28 | PROVIDERS: PCP Nurse Practitioner Family; Visit Provider Nurse Practitioner Family | DX: E11.9 Type 2 diabetes mellitus without complications (principal) | CPT/HCPCS: 83036 ==

== ENCOUNTER → 2023-09-02 04:06 | Outpatient (CLI) | payer BC, SELFPAY ==
--- NOTE | 2023-09-02 14:48 | DI.RAD_ITS ---
Exam(s) XR FOOT LT COMPLETE EXAM: XR FOOT LT COMPLETE CLINICAL HISTORY: mass on lateral aspect, superior,LT FOOT PAIN,M79.672. TECHNIQUE: 2D digital imaging was performed. Three views. COMPARISON: No exams were available for comparison FINDINGS: BONES: circumscribed lucency in the proximal 3rd metatarsal consistent with a bone cyst. No acute f racture is present. No bony destructive lesion is seen. Prominent heel spurs. dorsal talar beak. JOINTS: No dislocation present. Degenerative changes at talonavicular joint. Degenerative changes wit h prominent spur at navicular cuneiform joint. This likely CT accounts for the ???mass??? at dorsum of foot. SOFT TISSUE: Normal. IMPRESSION: Degenerative changes with prominent spur at the dorsal aspect of the 1st cuneiform. Also prominent d orsal talar beak. DATA REPOSITORY: RADIATION DOSE DELIVERED:
== END ==
PROVIDERS: PCP Nurse Practitioner Family; Visit Provider Nurse Practitioner Family
DX: M79.672 Pain in left foot (principal); M85.472 Solitary bone cyst, left ankle and foot; M77.32 Calcaneal spur, left foot; M19.072 Primary osteoarthritis, left ankle and foot
CPT/HCPCS: 73630

== ENCOUNTER 2024-01-22 02:49 | Outpatient (CLI) | payer BC, SELFPAY ==
--- NOTE | 2024-01-22 09:45 | DI.RAD_ITS ---
Exam(s) XR FOOT LT COMPLETE XR HEEL LT OS CALCIS EXAM: XR FOOT LT COMPLETE CLINICAL HISTORY: Joint pain, OA SUBTALAR JOINT, M19.079. TECHNIQUE: 2D digital imaging was performed. Five views. COMPARISON: CR XR FOOT LT COMPLETE from 09/02/2023 CR XR HEEL LT OS CALCIS from 01/22/2024 FINDINGS: BONES: No acute fracture is present. No bony destructive lesion is seen. Prominent heel spurs. JOINTS: No dislocation present. Dorsal spurring at the talonavicular and navicular cuneiform joints . SOFT TISSUE: Normal. IMPRESSION: Prominent heel spurs. Degenerative changes. DATA REPOSITORY: RADIATION DOSE DELIVERED:
== END 2024-01-22 03:09 ==
LOC: DI 02:49
PROVIDERS: PCP Nurse Practitioner Family; Visit Provider Podiatrist
DX: M19.072 Primary osteoarthritis, left ankle and foot (principal); M77.32 Calcaneal spur, left foot
CPT/HCPCS: 73630; 73650

== ENCOUNTER 2024-02-25 15:13 | Outpatient (REF) | payer BC, SELFPAY ==
[2024-02-25 21:08] LABS: ALT 23 U/L (14-59); AST 18 U/L (15-37); Albumin 3.8 g/dL (3.4-5.0); Alkaline Phosphatase 78 U/L (46-116); Anion Gap 5.6 mmol/L (3-11); BUN 16 mg/dL (7-18); Bilirubin, Total 0.52 mg/dL (0.2-1.0); CO2 28.4 mmol/L (21.0-32.0); CREATININE 0.7 mg/dL (0.55-1.02); Calcium 9.6 mg/dL (8.5-10.1); Chloride 102 mmol/L (98-107); Estimated GFR 102.71 (mL/min/1.73m2); Glucose 88 mg/dL (74-106); Potassium 4.2 mmol/L (3.5-5.1); Sodium 136 mmol/L (136-145); Total Protein 7.5 g/dL (6.4-8.2)
[2024-02-26 20:08] LABS: Hepatitis C Ab w Rflx HCV PCR Negative (Negative)
[2024-02-26 20:11] LABS: HIV-1/2 Ag & Ab Screen Negative (Negative)
== END 2024-02-25 15:14 | disposition home or self-care (01) ==
LOC: LBN 15:13
PROVIDERS: PCP Nurse Practitioner Family; Visit Provider Nurse Practitioner Family
DX: E11.9 Type 2 diabetes mellitus without complications (principal); Z11.4 Encounter for screening for human immunodeficiency virus [HIV]; Z11.59 Encounter for screening for other viral diseases
CPT/HCPCS: 80053; 86803; 87389

== ENCOUNTER 2024-03-03 00:57 | Outpatient (CLI) | payer BC, SELFPAY ==
--- NOTE | 2024-03-03 07:45 | DI.MAMMO_ITS ---
Exam(s) MAMMO SCREENING EXAM: MAMMO SCREENING CLINICAL HISTORY: screening,z12.39. TECHNIQUE: Bilateral full field digital CC and MLO mammographic images were obtained with 3D tomosyn thesis and utilizing computer aided detection (CAD). COMPARISON: Prior mammograms were reviewed. FINDINGS: There has been no significant change in the appearance and distribution of the fibroglandular tissue. There are no new spiculated masses nor malignant appearing microcalcification groups. There is no significant architectural distortion nor skin thickening-retraction. IMPRESSION: No radiographic evidence of malignancy. BI-RADS Category 1 - Negative Breast Density - Category A - Almost entirely fatty Breast density Category C or D implies that the patient has dense breast tissue. Dense breast tissue can make it harder to find cancer on a mammogram. Dense breast tissue is also associated with an incr eased risk of breast cancer. This information about the result of the mammogram report was provided to the patient to raise their awareness. Use this report when you speak with the patient about their risks for breast cancer, which includes their family history. At that time, you may recommend additional screening tests (Ultrasoun d or MRI) as these tests may add significant information. A negative radiographic report should not delay biopsy if a dominant or clinically suspicious mass is present. Up to ten percent of cancers are not identified on mammography. A negative report may reinforce clinical impression. Adenosis and dense breasts may obscure an underlying neoplasm. False positive reports average 6 to 10%. Patient will receive a letter notifying them of these results.
== END 2024-03-03 01:17 ==
PROVIDERS: PCP Nurse Practitioner Family; Visit Provider Nurse Practitioner Family
DX: Z12.31 Encounter for screening mammogram for malignant neoplasm of breast (principal)
CPT/HCPCS: 77063; 77067

== ENCOUNTER 2024-04-05 21:06 | Outpatient (REF) | payer BC, SELFPAY | END 2024-04-05 21:07 | disposition home or self-care (01) | LOC: LBN 21:06 | PROVIDERS: PCP Nurse Practitioner Family; Visit Provider Nurse Practitioner Family | DX: L98.9 Disorder of the skin and subcutaneous tissue, unspecified (principal) | CPT/HCPCS: 87070; 87205 ==

== ENCOUNTER 2024-11-25 14:48 | Outpatient (CLI) | payer BC, SELFPAY ==
--- NOTE | 2024-11-25 14:00 | DI.RAD_ITS ---
Exam(s) XR KNEE RT 3V AP,LAT,МАРИНА EXAM: XR KNEE RT 3V AP,LAT,МАРИНА CLINICAL HISTORY: knee pain, right M25.561. TECHNIQUE: 2D digital imaging was performed. COMPARISON: CR LEFT KNEE COMPLETE from 04/14/2006 FINDINGS: 3 views No evidence of acute fracture nor prominent joint effusion. There are degenerative changes in all 3 compartments, most prominent in the medial compartment where there is moderate joint space narrowing and marginal osteophytes. Lesser amount of narrowing in the lateral compartment is noted but also marginal osteophytes are seen in the lateral compartment. Also significant narrowing of the patellofemoral compartment and marginal osteophytes at this level. IMPRESSION: Tricompartmental osteoarthritic degenerative changes in the right knee. DATA REPOSITORY: RADIATION DOSE DELIVERED:
== END 2024-11-25 15:08 ==
LOC: DI 14:48
PROVIDERS: PCP Nurse Practitioner Family; Visit Provider Physician Assistant
DX: M25.561 Pain in right knee (principal)
CPT/HCPCS: 73562

== ENCOUNTER 2025-03-17 14:06 | Outpatient (REF) | payer BC, SELFPAY ==
--- NOTE | 2025-03-17 13:30 | SKI_PTH ---
PATIENT: Betsy Feliciano LOC: [facility] U#:[id number] AGE/SX: 55/F ROOM: RE03/17/[address]: Alex De La Cruz DNP : 1970 BED: DIS: 03/17/2025 SPEC #: [id number] RECD: 03/17/25 17:57 STATUS: SÁNCHEZ REAmanda #: [id number] IMANI: 03/17/25 13:[address]: Alex Vazquez DEPT: Surgical Specimen RECD BY: Annabel Medina Tissues: 1 - SKIN BIOPSY(SHAVE/PUNCH) Procedures: SKIN LEVEL 4 Comments: [id number]
== END 2025-03-17 14:07 | disposition home or self-care (01) ==
LOC: LBN 14:06
PROVIDERS: PCP Nurse Practitioner Family; Visit Provider Nurse Practitioner Family
DX: L82.1 Other seborrheic keratosis (principal)
CPT/HCPCS: 88305

== ENCOUNTER 2025-03-22 01:21 | Outpatient (CLI) | payer BC, SELFPAY ==
[2025-03-22 08:26] LABS: HCT 44.7 % (36.0-46.0); HGB 14.6 g/dL (11.2-15.7); MCH 29.6 pg (27.0-33.0); MCHC 32.7 % (32.0-36.0); MCV 91 fL (80-95); MPV 9.9 fL (8.0-11.0); Platelet Count 211 10^3/uL (130-400); RBC 4.94 10^6/uL (3.93-5.22); RDW 13.7 % (11.7-14.6); RDW-SD 45.6 fL; WBC 7.78 10^3/uL (4.4-10.8)
[2025-03-22 08:35] LABS: Hemoglobin A1C 5.7 % (<5.7)
[2025-03-22 09:34] LABS: ALT 22 U/L (14-59); AST 16 U/L (15-37); Albumin 3.5 g/dL (3.4-5.0); Alkaline Phosphatase 74 U/L (46-116); Anion Gap 7.1 mmol/L (3-11); BUN 20 mg/dL (7-18); Bilirubin, Total 0.3 mg/dL (0.2-1.0); CO2 27.9 mmol/L (21.0-32.0); Calcium 9.1 mg/dL (8.5-10.1); Calculated LDL 104 mg/dL (<100); Chloride 104 mmol/L (98-107); Cholesterol 168 mg/dL (<200); Estimated GFR 86.96 (mL/min/1.73m2); Glucose 105 mg/dL (74-106); HDL Cholesterol 43 mg/dL (>or=50); Potassium 4.1 mmol/L (3.5-5.1); Sodium 139 mmol/L (136-145); TSH (W/Ref FT4) 3.13 uIU/mL (0.36-3.74); Total Protein 7.5 g/dL (6.4-8.2); Triglyceride 105 mg/dL (<150)
== END 2025-03-22 01:22 | disposition home or self-care (01) ==
LOC: LBO 01:21
PROVIDERS: PCP Nurse Practitioner Family; Visit Provider Nurse Practitioner Family
DX: R68.89 Other general symptoms and signs (principal); E11.9 Type 2 diabetes mellitus without complications
CPT/HCPCS: 36415; 80053; 80061; 85027; 83036; 84443

== ENCOUNTER 2025-03-23 01:26 | Outpatient (CLI) | payer BC, SELFPAY ==
--- NOTE | 2025-03-23 08:00 | DI.MAMMO_ITS ---
Exam(s) MAMMO SCREENING EXAM: MAMMO SCREENING CLINICAL HISTORY: screening Z12.39. TECHNIQUE: Bilateral full field digital CC and MLO mammographic images were obtained with 3D tomosynthesis and utilizing computer aided detection (CAD). COMPARISON: Prior mammograms were reviewed. FINDINGS: There has been no significant change in the appearance and distribution of the fibroglandular tissue. There are no new spiculated masses nor malignant appearing microcalcification groups. There is no significant architectural distortion nor skin thickening-retraction. IMPRESSION: No radiographic evidence of malignancy. BI-RADS Category 1 - Negative Breast Density - Category A - The breast are almost entirely fatty. Breast density Category C or D implies that the patient has dense breast tissue. Dense breast tissue can make it harder to find cancer on a mammogram. Dense breast tissue is also associated with an increased risk of breast cancer. This information about the result of the mammogram report was provided to the patient to raise their awareness. Use this report when you speak with the patient about their risks for breast cancer, which includes their family history. At that time, you may recommend additional screening tests (Ultrasound or MRI) as these tests may add significant information. A negative radiographic report should not delay biopsy if a dominant or clinically suspicious mass is present. Up to ten percent of cancers are not identified on mammography. A negative report may reinforce clinical impression. Adenosis and dense breasts may obscure an underlying neoplasm. False positive reports average 6 to 10%. Patient will receive a letter notifying them of these results.
== END 2025-03-23 01:46 ==
LOC: DI 01:26
PROVIDERS: PCP Nurse Practitioner Family; Visit Provider Nurse Practitioner Family
DX: Z12.31 Encounter for screening mammogram for malignant neoplasm of breast (principal); R92.323 Mammographic fibroglandular density, bilateral breasts
CPT/HCPCS: 77063; 77067